=== PATIENT | female | born 1925 | race Caucasian/White ===

== ENCOUNTER 2016-04-05 13:18 | Emergency (ER) | payer OTHER, BC, MEDICARE ==
[~2016-04-05] VITALS: Ht 147.3 cm; Wt 68.0 kg
[~2016-04-05 13:18] MED LIST: ACETAMINOPHEN500 M4 PO; ANTIVERT 12.512.5 MG PO; ASPIR 8181 MG PO; ATORVASTATIN CA40 M1 PO; BENICAR20 M1 PO; BENICAR40 M1 PO; CEVIMELINE HCL30 MG PO; CLARITIN10 MG PO; COLACE100 M1 PO; FERROUS SULFAT325 M1 PO; FERROUS SULFAT325 M3 PO; HYDROCHLOROTH12.5 M3 PO; JANUVIA50 M1 PO; LANSOPRAZOLE30 MG PO; LANTUS INS100 UNITS/ SC; LANTUS SOL100 UNIT/1 SC; LANTUS SOLOS100 U/ML SC; LEVEMIR 10100 UNITS/ SC; MAGNESIUM400 M1 PO; MASON NATURAL325 MG PO; MELOXICAM7.5 MG PO; METANX 2.8 MG-21 TAB PO; PROAIR HFA0.09 MG/Ac INH; PROAIR HFA8.5 GM INH; PROBIOTIC & ACI1 CAP PO; PROBIOTIC1 EACH PO; RESTASIS 0.4 M0.4 ML OPH; RESTASIS1 EACH OP; SENNA8.6 M3 PO; SIMVASTATIN10 MG PO; SPIRIVA 18 MCG18 MCG INH; SPRIVIA; TYLENOL PM 5001 CAP PO; TYLENOL TAB 32325 MG PO; TYLENOL WITH C1 EACH PO; UNISOM50 MG PO; VITAMIN D1000 IU PO; [UNRECOGNIZED DRUG - OTHER] PO
--- NOTE | 2016-04-05 15:16 | ED GENERAL ADULT ---
History of Present Illness General Chief Complaint: General Adult Stated Complaint: WEAKNESS Source: patient Exam Limitations: no limitations Allergies Coded Allergies: shellfish derived (Severe, HTN 05/14/15) zolpidem (From AMBIEN) (Severe, SOB 05/14/15) Gadolinium-Containing Contrast Medi (CONTRAST DYE - HIVES ALL OVER 04/05/16) Iodinated Contrast Media - Oral and (CONTRAST DYE - HIVES ALL OVER 04/05/16) gabapentin (UNKNOWN PER PT 05/14/15) Reconcile Medications Acetaminophen 500 MG TABLET 2 TAB PO BID ARTHRITIS (Reported) Albuterol Sulfate (Proair Hfa) 8.5 GM HFA.AER.AD 2 PUF INH PRN COPD (Reported ) Atorvastatin Calcium 40 MG TABLET 1 TAB PO DAILY CHOLESTEROL (Reported) Cevimeline HCl 30 MG CAPSULE 1 CAP PO BID DRY MOUTH (Reported) Cholecalciferol (Vitamin D3) (Vitamin D3) 1,000 UNIT CAPSULE 1 CAP PO DAILY SUPPLEMENT (Reported) Cyclosporine (Restasis) 1 EACH DROPERETTE 1 AMP OP DAILY BOTH EYES (Reported) Diphenhydramine HCl (Unisom) 50 MG CAPSULE 1 CAP PO QHS SLEEP HELP (Reported) Docusate Sodium (Colace) 100 MG CAPSULE 2 CAP PO 1400 GI (Reported) Ferrous Sulfate 325 MG (65 MG IRON) TABLET 1 TAB PO BID SUPPLEMENT (Reported) Hydrochlorothiazide 12.5 MG CAPSULE 1 CAP PO DAILY BP (Reported) Insulin Glargine,Hum.rec.anlog (Lantus Solostar) 100 UNIT/1 ML INSULN.PEN 32 UNIT SC BID DIABETES (Reported) Lactobacillus Acidophilus (Probiotic) 1 EACH CAPSULE 1 CAP PO QAM PROBIOTIC ( Reported) Lansoprazole 30 MG CAPSULE.DR 1 CAP PO DAILY GI (Reported) Magnesium Oxide (Magnesium) 400 MG CAPSULE 1 CAP PO DAILY GALL BLADDER ( Reported) Mecobal/Levomefolat Ca/B6 Phos (Foltanx Tablet) 2 MG-3 MG-35 MG TABLET 1 TAB PO BID NEUROPATHY (Reported) Olmesartan Medoxomil (Benicar) 20 MG TABLET 1 TAB PO DAILY HTN Sennosides (Senna) 8.6 MG TABLET 2 TAB PO DAILY CONSTIPATION (Reported) Sitagliptin Phosphate (Januvia) 50 MG TABLET 1 TAB PO QAM DIABETES (Reported) Triage Note: PT C/O FEELING TIRED, ACHY AND WEAK SINCE THIS AM. PT DENIES CP BUT STATES SHE IS SOB WHICH IS NORMAL FOR HER. Triage Nurses Notes Reviewed? yes HPI: This patient is an 82-year-old female with past medical history including hypertension, lung carcinoma, and anemia who presents to the emergency department today for evaluation of, "I just feel lousy and weak and tired." The patient reported that she has had significant workup for anemia requiring blood transfusions on multiple occasions in the past. She reported that she is supposed to see Dr. Diaz periodically for lab check. She is due to see him this . However, this morning she woke up feeling more short of breath than normal. She also has been feeling weak, lightheaded, and fatigued. The patient denied any dizziness, visual changes, chest pain, abdominal pain, nausea , vomiting, back pain, or any other associated symptoms. The patient reported that she is currently on iron which makes her stools black, so she is unable to tell if there is any blood in her stool this time. The patient has had a colonoscopy, endoscopy, and pill cam with no etiology found for the bleeding. She has also had renal ultrasounds. (WIL ADDISON,SARAH) Vital Signs & Intake/Output Vital Signs & Intake/Output Vital Signs Date Time Temp Pulse Resp B/P Pulse O2 O2 Flow FiO2 Ox Delivery Rate 04/05 1706 98.2 76 17 144/80 98 Room Air Room Air 04/05 1511 98 Room Air 04/05 1329 98.1 79 20 168/70 97 Room Air ED Intake and Output 04/06 0000 04/05 1200 Intake Total Output Total Balance Patient 150 lb Weight Past History Travel History Traveled to [place] past 21 day No Medical History Any Pertinent Medical History? see below for history Neurological: peripheral neuropathy (DM) EENT: cataracts (B/L surgery), hearing loss (B/L), otitis media (B/L) Cardiovascular: hypertension, hyperlipidemia, nonsustained Vtach postop lung surgery 2004. 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 BROTHER (prostate cancer). , Age 75. MOTHER (heart attack at age of 72, HTN). , Age 72. BROTHER, , Age 75; Cause: Prostate CA. MOTHER, , Age 72. SON SISTER, , Age 94; Cause: Old age. SISTER, Age 94. Relation not specified for: colon cancer Hx Contributory? No (SARAH DE LA TORRE PA-C) Review of Systems Review of Systems Constitutional: Reports: see HPI. EENTM: Reports: no symptoms. Respiratory: Reports: see HPI. Cardiovascular: Reports: no symptoms. GI: Reports: no symptoms. Genitourinary: Reports: no symptoms. Musculoskeletal: Reports: no symptoms. Skin: Reports: no symptoms. Neurological/Psychological: Reports: no symptoms. All Other Systems: Reviewed and Negative (SARAH DE LA TORRE PA-C) Physical Exam Physical Exam General Appearance: well developed/nourished, no apparent distress, alert, awake Comments: Well-developed well-nourished person in no acute distress HEENT: Normal EENT exam, head normocephalic, moist mucous membranes Pupils equally round and reactive to light. Neck: Supple, no lymphadenopathy Back: Normal inspection Cardiovascular: Regular rate and rhythm with no murmurs, rubs, or gallops. No JVD Respiratory: No respiratory distress. Breath sounds clear to auscultation bilaterally with no wheezes, rales, rhonchi Abdomen: Soft, nontender nondistended, no appreciable organomegaly. Normal bowel sounds. No ascites Extremity: No edema, no calf tenderness to palpation, normal and equal pulses. Neuro: Alert oriented x3, cranial nerves II through XII grossly intact. Skin: No appreciable rash on exposed skin, skin is warm and dry. Psych: Mood and affect is normal (SARAH DE LA TORRE PA-C) Core Measures ACS in differential dx? No CVA/TIA Diagnosis: No Severe Sepsis Present: No Septic Shock Present: No (DARRYL HUERTA DO) Progress Differential Diagnoses I considered the following diagnoses in my evaluation of the patient: [Influenza , COPD, CHF, PE, ACS, anemia] Diagnostic Imaging: Viewed by Me: Radiology Read. Discussed w/RAD: Radiology Read. CXR Impression: PATIENT: PABLO LOYOLA PRESENT AGE: 89 PATIENT ACCOUNT NO: [id number] : [birth year] LOCATION: [facility] ORDERING PHYSICIAN: SARAH DE LA TORRE PA-C SERVICE DATE: 04/05/16 EXAM TYPE: RAD - XRY- PORTABLE CHEST XRAY EXAMINATION: XR PORTABLE CHEST CLINICAL INFORMATION: Shortness of breath COMPARISON: 12/29/2015 TECHNIQUE: Portable AP view of the chest was obtained. FINDINGS: No focal consolidation, pulmonary edema, or pleural effusion. Stable cardiomediastinal silhouette. IMPRESSION: No acute cardiopulmonary findings. No change. DICTATED BY: KRISTINA RIOS MD DATE/ TIME DICTATED:04/05/161532 BLOCK INSPECTOR:JASMINA DATE/TIME TRANSCRIBED: 04/05/161532 CONFIDENTIAL, DO NOT COPY WITHOUT APPROPRIATE AUTHORIZATION. < Electronically signed in Other Vendor System> SIGNED BY: KRISTINA RIOS MD 04/05/161537 Initial ED EKG: sinus arrhythmia, similar to prior ekg Comments: 04/05/2016 4:19:11 PM: I was at the patient's bedside for re-evaluation. Resting comfortably on the stretcher. Updated her teri lab and imaging results. No increase in troponin or BNP. H&H stable. UNremarkable chest x-ray. Discussed this patient with Dr. Huerta who will be at the patient's bedside for face-to- face evaluation. 04/05/2016 4:41:15 PM: Dr. Huerta currently at the patient's bedside for face-to- face evaluation. (WIL ADDISON,SARAH) Plan of Care: Orders Procedure Date/time Status B-TYPE NATRIURETIC PEP (BNP) 04/05 1520 Complete Add-on Test (ER Only) 04/05 1519 Active RAPID VIRAL INFLUENZA A 04/05 1455 Complete PARTIAL THROMBOPLASTIN TIME 04/05 1455 Complete PROTHROMBIN TIME 04/05 1455 Complete TYPE & SCREEN (NOT X-MATCH) 04/05 1455 Complete TROPONIN LEVEL 04/05 1454 Complete MAGNESIUM 04/05 1454 Complete COMPREHENSIVE METABOLIC PANEL 04/05 1454 Complete CBC WITHOUT DIFFERENTIAL 04/05 1454 Complete EKG 04/05 1330 Active Laboratory Tests 04/05/16 1520: Anion Gap 13, Estimated GFR > 60, BUN/Creatinine Ratio 20.0, Glucose 133 H, Calcium 10.4 H, Magnesium 1.2 L, Total Bilirubin 0.4, AST 28, ALT 25, Alkaline Phosphatase 53, Troponin I 0.01, Ooy-Q-Cbcmobigefj Pept 584 H, Total Protein 7.5, Albumin 4.4, Globulin 3.1, Albumin/Globulin Ratio 1.4, PT 11.3, INR 1.08, APTT 36, CBC w Diff NO MAN DIFF REQ, RBC 4.03 L, MCV 91.3, MCH 30.4, RDW 14.8 H, MPV 8.5, Gran % 72.6, Lymphocytes % 19.8 L, Monocytes % 6.4, Eosinophils % 1.0, Basophils % 0.2, Absolute Granulocytes 5.8, Absolute Lymphocytes 1.6, Absolute Monocytes 0.5, Absolute Eosinophils 0.1, Absolute Basophils 0, PUBS MCHC 33.3 Microbiology 04/05 1551 NASOPHARYN: Influenza Virus A & B Rapid Smear - COMP Departure Departure Disposition: HOME OR SELF CARE Condition: Stable Clinical Impression Primary Impression: Fatigue Qualifiers: Fatigue type: unspecified Qualified Code: R53.83 - Other fatigue Referrals: FRANNY CHOWDHURY,ADAM Vasquez (PCP/Family) Additional Instructions: PLEASE FOLLOW-UP WITH YOUR PRIMARY CARE PHYSICIAN. CONTINUE TO TAKE ALL PREVIOUSLY PRESCRIBED MEDICATIONS DIRECTED. RETURN FOR ANY WORSENING SYMPTOMS OR CONCERNS. Departure Forms: Customer Survey General Discharge Information (SARAH DE LA TORRE PA-C) PA/COFFEE MACHINE TECHNICIAN Co-Sign Statement Statement: ED Attending supervision documentation- [X] I saw and evaluated the patient. I have also reviewed all the pertinent lab results and diagnostic results. I agree with the findings and the plan of care as documented in the PA's/COFFEE MACHINE TECHNICIAN's documentation. [] I have reviewed the ED Record and agree with the PA's/COFFEE MACHINE TECHNICIAN's documentation. [] Additions or exceptions (if any) to the PAs/COFFEE MACHINE TECHNICIAN's note and plan are summarized below: [] (DARRYL HUERTA DO) Critical Care Note Critical Care Note Critical Care Time: non-applicable (DARRYL HUERTA DO)
[2016-04-05] MEDS ORDERED: FOLTANX TABLET1 EACH PO (15:18)
[2016-04-05] MEDS ORDERED: LANSOPRAZOLE30 M2 PO (15:23)
[2016-04-05] MEDS ORDERED: HYDROCHLOROTH12.5 M3 PO (15:24)
[2016-04-05] MEDS ORDERED: CEVIMELINE HCL30 M1 PO (15:25)
[2016-04-05] MEDS ORDERED: VITAMIN D31000 UNI1 PO (15:26)
--- NOTE | 2016-04-05 15:38 | RADIOLOGY REPORT ---
EXAMINATION: XR PORTABLE CHEST CLINICAL INFORMATION: Shortness of breath COMPARISON: 12/29/2015 TECHNIQUE: Portable AP view of the chest was obtained. FINDINGS: No focal consolidation, pulmonary edema, or pleural effusion. Stable cardiomediastinal silhouette. IMPRESSION: No acute cardiopulmonary findings. No change.
[2016-04-05 15:40] LABS: ABSOLUTE BASOPHIL COUNT 0 /CUMM (0.0-0.2); ABSOLUTE EOSINOPHIL COUNT 0.1 /CUMM (0.0-0.7); ABSOLUTE GRANULOCYTE CT 5.8 /CUMM (1.4-6.5); ABSOLUTE LYMPH COUNT 1.6 /CUMM (1.2-3.4); ABSOLUTE MONOCYTE COUNT 0.5 /CUMM (0.10-0.60); BASOPHIL % 0.2 % (0.0-2.0); GRANULOCYTE % 72.6 % (42.2-75.2); HEMATOCRIT 36.8 % (37-47); MEAN CORPUSCULAR HGB 30.4 PG (27.0-31.0); MEAN CORPUSCULAR HGB CONC 33.3 G/DL (33.0-37.0); MEAN CORPUSCULAR VOLUME 91.3 FL (81.0-99.0); MEAN PLATELET VOLUME 8.5 FL (7.4-10.4); PLATELET COUNT 312 /CUMM (130-400); RBC DISTRIBUTION WIDTH 14.8 % (11.5-14.5); RED BLOOD CELL CT 4.03 /CUMM (4.20-5.40)
[2016-04-05 15:45] LABS: PT 11.3 SEC (9.4-12.5); PTT 36 SEC (25-37)
[2016-04-05 17:06] VITALS: BP 144/80
== END 2016-04-05 17:06 ==
LOC: ERH 13:18
PROVIDERS: Physician Assistant
DX: R53.83 Other fatigue (principal); R06.02 Shortness of breath; R42 Dizziness and giddiness; I10 Essential (primary) hypertension; E11.9 Type 2 diabetes mellitus without complications; Z87.891 Personal history of nicotine dependence; Z79.4 Long term (current) use of insulin
CPT/HCPCS: 87804; 87804-59; 93005; 93010

== ENCOUNTER 2016-05-22 10:13 | Emergency (ER) | payer OTHER, BC, MEDICARE ==
[~2016-05-22] VITALS: Ht 147.3 cm; Wt 68.0 kg
[~2016-05-22 10:13] MED LIST changes: +CEVIMELINE HCL30 M1 PO; +FOLTANX TABLET1 EACH PO; +LANSOPRAZOLE30 M2 PO; +VITAMIN D31000 UNI1 PO
[2016-05-22 11:06] LABS: ABSOLUTE BASOPHIL COUNT 0.1 /CUMM (0.0-0.2); ABSOLUTE EOSINOPHIL COUNT 0.1 /CUMM (0.0-0.7); ABSOLUTE GRANULOCYTE CT 5.1 /CUMM (1.4-6.5); ABSOLUTE LYMPH COUNT 1.3 /CUMM (1.2-3.4); ABSOLUTE MONOCYTE COUNT 0.5 /CUMM (0.10-0.60); BASOPHIL % 1.2 % (0.0-2.0); EOSINOPHIL % 2.1 % (0-5); GRANULOCYTE % 72.2 % (42.2-75.2); MEAN CORPUSCULAR HGB 30.2 PG (27.0-31.0); MEAN CORPUSCULAR HGB CONC 33.3 G/DL (33.0-37.0); MEAN CORPUSCULAR VOLUME 90.6 FL (81.0-99.0); MEAN PLATELET VOLUME 8.7 FL (7.4-10.4); PLATELET COUNT 288 /CUMM (130-400); RBC DISTRIBUTION WIDTH 14.6 % (11.5-14.5); RED BLOOD CELL CT 3.98 /CUMM (4.20-5.40); WHITE BLOOD CELL COUNT 7.1 /CUMM (4.8-10.8)
--- NOTE | 2016-05-22 11:34 | ED AMS/SEIZURE/WEAK/DIZZY ---
History of Present Illness General Chief Complaint: General Adult Stated Complaint: INCREASED WEAKESS Source: patient Exam Limitations: no limitations Vital Signs & Intake/Output Vital Signs & Intake/Output Vital Signs Date Time Temp Pulse Resp B/P Pulse O2 O2 Flow FiO2 Ox Delivery Rate 05/22 1312 98.4 62 18 172/72 94 Room Air 05/22 1136 Nasal 2.0L Cannula 05/22 1023 97.2 73 18 134/61 96 Room Air Room Air Allergies Coded Allergies: shellfish derived (Severe, HTN 05/14/15) zolpidem (From AMBIEN) (Severe, SOB 05/14/15) Gadolinium-Containing Contrast Medi (CONTRAST DYE - HIVES ALL OVER 04/05/16) Iodinated Contrast Media - Oral and (CONTRAST DYE - HIVES ALL OVER 04/05/16) gabapentin (UNKNOWN PER PT 05/14/15) Reconcile Medications Acetaminophen 500 MG TABLET 2 TAB PO BID ARTHRITIS (Reported) Albuterol Sulfate (Proair Hfa) 8.5 GM HFA.AER.AD 2 PUF INH PRN COPD (Reported ) Atorvastatin Calcium 40 MG TABLET 1 TAB PO DAILY CHOLESTEROL (Reported) Cevimeline HCl 30 MG CAPSULE 1 CAP PO BID DRY MOUTH (Reported) Cholecalciferol (Vitamin D3) (Vitamin D3) 1,000 UNIT CAPSULE 1 CAP PO DAILY SUPPLEMENT (Reported) Cyclosporine (Restasis) 1 EACH DROPERETTE 1 AMP OP DAILY BOTH EYES (Reported) Diphenhydramine HCl (Unisom) 50 MG CAPSULE 1 CAP PO QHS SLEEP HELP (Reported) Docusate Sodium (Colace) 100 MG CAPSULE 2 CAP PO 1400 GI (Reported) Ferrous Sulfate 325 MG (65 MG IRON) TABLET 1 TAB PO BID SUPPLEMENT (Reported) Hydrochlorothiazide 12.5 MG CAPSULE 1 CAP PO DAILY BP (Reported) Insulin Glargine,Hum.rec.anlog (Lantus Solostar) 100 UNIT/1 ML INSULN.PEN 32 UNIT SC BID DIABETES (Reported) Lactobacillus Acidophilus (Probiotic) 1 EACH CAPSULE 1 CAP PO QAM PROBIOTIC ( Reported) Lansoprazole 30 MG CAPSULE.DR 1 CAP PO DAILY GI (Reported) Magnesium Oxide (Magnesium) 400 MG CAPSULE 1 CAP PO DAILY GALL BLADDER ( Reported) Meclizine HCl 25 MG TABLET 1 TAB PO TIDPRN PRN DIZZINESS Mecobal/Levomefolat Ca/B6 Phos (Foltanx Tablet) 2 MG-3 MG-35 MG TABLET 1 TAB PO BID NEUROPATHY (Reported) Olmesartan Medoxomil (Benicar) 20 MG TABLET 1 TAB PO DAILY HTN Scopolamine Hydrobromide (Transderm-Scop) 1.5MG/3DAY PATCH.TD.3 1 PAT TOP Q3D VERTIGO apply to the hairless area behind 1 ear at least 4 hours before effect is required; reapply every 3 days as needed Sennosides (Senna) 8.6 MG TABLET 2 TAB PO DAILY CONSTIPATION (Reported) Sitagliptin Phosphate (Januvia) 50 MG TABLET 1 TAB PO QAM DIABETES (Reported) Triage Note: TRIAGE: 89 Y/O FEMALE PRESENTS C/O INCREASED WEAKNESS AND "I FEEL LIKE I'M GOING TO PASS OUT." DENIES HEADACHE, REPORTS "LIKE I'M FLOATING". EKG ORDER PLACED AT THIS TIME. Triage Nurses Notes Reviewed? yes Onset: Gradual Duration: day(s): (FEW) Timing: recent history Injury Environment: home Severity: mild HPI: 89 year old female presents with weakness and just not feeling right. Symptoms for a few days. Also complains of shortness of breath unsure if worse than baseline. No home oxygen. Denies fever, chills, chest pain, palpitations, cough with sputum, constipation, diarrhea. No urinary symptoms. No headache, confusion, memory loss. Patient worried about electrolytes which have been abnormal in the past. Past History Travel History Traveled to [place] past 21 day No Medical History Any Pertinent Medical History? see below for history Neurological: peripheral neuropathy (DM) EENT: cataracts (B/L surgery), hearing loss (B/L), otitis media (B/L) Cardiovascular: hypertension, hyperlipidemia, nonsustained Vtach postop lung surgery 2004. 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 BROTHER (prostate cancer). , Age 75. MOTHER (heart attack at age of 72, HTN). , Age 72. BROTHER, , Age 75; Cause: Prostate CA. MOTHER, , Age 72. SON SISTER, , Age 94; Cause: Old age. SISTER, Age 94. Relation not specified for: colon cancer Hx Contributory? No Review of Systems Review of Systems Constitutional: Reports: weakness. Denies: chills, fever. EENTM: Reports: no symptoms. Respiratory: Reports: cough, short of breath. Denies: sputum production. Cardiovascular: Denies: chest pain, palpitations. GI: Denies: abdominal pain, constipation, diarrhea, nausea, vomiting. Genitourinary: Reports: no symptoms. Musculoskeletal: Reports: no symptoms. Skin: Reports: no symptoms. Neurological/Psychological: Reports: no symptoms. Hematologic/Endocrine: Denies: bruising, bleeding, polyuria, polydipsia. Immunologic/Allergic: Denies: splenectomy. All Other Systems: Reviewed and Negative Physical Exam Physical Exam General Appearance: alert, awake Head: atraumatic, normal appearance Eyes: Bilateral: normal appearance, PERRL, EOMI. Ears, Nose, Throat: normal pharynx, hearing grossly normal Neck: normal inspection, supple, full range of motion Respiratory: decreased breath sounds (ON LEFT) Cardiovascular: regular rate/rhythm Peripheral Pulses: 2+ radial (R), 2+ radial (L) Extremities: PETECHIAL RASH ON LEGS, NO EDEMA Neurologic/Psych: awake, alert Skin: intact, normal color, warm/dry Core Measures ACS in differential dx? No CVA/TIA Diagnosis: No Severe Sepsis Present: No Septic Shock Present: No Progress Differential Diagnosis: anemia, dehydration, electrolyte imbalance, GI bleed, HYPOMAGNESEMIA Plan of Care: Orders Procedure Date/time Status Heart Healthy Diet 05/22 D Active Add-on Test (ER Only) 05/22 1152 Active MAGNESIUM 05/22 1055 Complete URINALYSIS 05/22 1038 Complete TROPONIN LEVEL 05/22 1038 Complete COMPREHENSIVE METABOLIC PANEL 05/22 1038 Complete CBC WITHOUT DIFFERENTIAL 05/22 1038 Complete EKG 05/22 1025 Active Laboratory Tests 05/22/16 1152: Urinalysis LIGHT H, Urine Color YEL, Urine Clarity HAZY H, Urine pH 5.5, Ur Specific [place] >= 1.030, Urine Protein NEG, Urine Ketones NEG, Urine Nitrite NEG, Urine Bilirubin NEG, Urine Urobilinogen 0.2, Ur Leukocyte Esterase NEG, Ur Microscopic SEDIMENT EXAMINED, Urine RBC RARE, Urine WBC 1-3 H, Ur Epithelial Cells MANY H, Urine Bacteria MOD H, Urine Mucus RARE, Urine Hemoglobin NEG, Urine Glucose NEG 05/22/16 1055: Anion Gap 13, Estimated GFR > 60, BUN/Creatinine Ratio 27.5 H, Glucose 164 H, Calcium 10.4 H, Magnesium 1.2 L, Total Bilirubin 0.5, AST 28, ALT 31, Alkaline Phosphatase 49, Troponin I < 0.01, Total Protein 7.2, Albumin 4.2, Globulin 3.0, Albumin/Globulin Ratio 1.4, CBC w Diff NO MAN DIFF REQ, RBC 3.98 L, MCV 90.6, MCH 30.2, RDW 14.6 H, MPV 8.7, Gran % 72.2, Lymphocytes % 18.1 L, Monocytes % 6.4, Eosinophils % 2.1, Basophils % 1.2, Absolute Granulocytes 5.1, Absolute Lymphocytes 1.3, Absolute Monocytes 0.5, Absolute Eosinophils 0.1, Absolute Basophils 0.1, PUBS MCHC 33.3 Diagnostic Imaging: Viewed by Me: Radiology Read. Discussed w/RAD: Radiology Read. CXR Impression: PATIENT: PABLO LOYOLA PRESENT AGE: 89 PATIENT ACCOUNT NO: [id number] : [birth year] LOCATION: [facility] ORDERING PHYSICIAN: KARINA JANG MD SERVICE DATE: 05/22/16 EXAM TYPE: RAD - XRY-PORTABLE CHEST XRAY EXAMINATION: XR PORTABLE CHEST CLINICAL INFORMATION: Dyspnea. Night sweats. History of lung carcinoma. COMPARISON: Chest done on 04/05/2016. TECHNIQUE: Portable AP view of the chest was obtained. FINDINGS: Apparent widening of the superior mediastinum is noted. The cardiomediastinal silhouette otherwise appears unremarkable. No significant change. Prominent bronchovascular markings are present bilaterally, similar to prior study. No discrete focal airspace opacity. No significant change. IMPRESSION: No acute cardiopulmonary disease, appears stable since 04/05/2016. DICTATED BY: AMADOR FRIED MD DATE/ TIME DICTATED:05/22/161314 BLACK MILL OPERATOR:JASMINA DATE/TIME TRANSCRIBED: 05/22/161314 CONFIDENTIAL, DO NOT COPY WITHOUT APPROPRIATE AUTHORIZATION. < Electronically signed in Other Vendor System> SIGNED BY: AMADOR FRIED MD 05/22/16 1330 Initial ED EKG: NSR Departure Departure Disposition: HOME OR SELF CARE Condition: Stable Clinical Impression Primary Impression: Hypomagnesemia Referrals: FRANNY CHOWDHURY,ADAM Vasquez (PCP/Family) Additional Instructions: Continue your regular medications and follow-up with your doctor in the office. Return as needed. Departure Forms: Customer Survey General Discharge Information
--- NOTE | 2016-05-22 13:30 | RADIOLOGY REPORT ---
EXAMINATION: XR PORTABLE CHEST CLINICAL INFORMATION: Dyspnea. Night sweats. History of lung carcinoma. COMPARISON: Chest done on 04/05/2016. TECHNIQUE: Portable AP view of the chest was obtained. FINDINGS: Apparent widening of the superior mediastinum is noted. The cardiomediastinal silhouette otherwise appears unremarkable. No significant change. Prominent bronchovascular markings are present bilaterally, similar to prior study. No discrete focal airspace opacity. No significant change. IMPRESSION: No acute cardiopulmonary disease, appears stable since 04/05/2016.
[2016-05-22 14:50] VITALS: BP 156/69
== END 2016-05-22 14:51 ==
LOC: ERH 10:13
PROVIDERS: Emergency Medicine
DX: E83.42 Hypomagnesemia (principal)
CPT/HCPCS: 81001; 93005; 93010; 96361; 96374; J7040

== ENCOUNTER 2016-05-26 13:53 | Emergency (ER) | payer OTHER, BC, MEDICARE ==
[~2016-05-26] VITALS: Ht 147.3 cm; Wt 68.0 kg
--- NOTE | 2016-05-26 14:06 | ED GI/GU/ABDOMINAL COMPLAINT ---
History of Present Illness General Chief Complaint: Abdominal Pain/Flank Pain Stated Complaint: ABD PAIN, "WOOZY" Source: patient, family Exam Limitations: no limitations Allergies Coded Allergies: shellfish derived (Severe, HTN 05/14/15) zolpidem (From AMBIEN) (Severe, SOB 05/14/15) Gadolinium-Containing Contrast Medi (CONTRAST DYE - HIVES ALL OVER 04/05/16) Iodinated Contrast Media - Oral and (CONTRAST DYE - HIVES ALL OVER 04/05/16) gabapentin (UNKNOWN PER PT 05/14/15) Reconcile Medications Acetaminophen 500 MG TABLET 2 TAB PO BID ARTHRITIS (Reported) Albuterol Sulfate (Proair Hfa) 8.5 GM HFA.AER.AD 2 PUF INH PRN COPD (Reported ) Atorvastatin Calcium 40 MG TABLET 1 TAB PO DAILY CHOLESTEROL (Reported) Cevimeline HCl 30 MG CAPSULE 1 CAP PO BID DRY MOUTH (Reported) Cholecalciferol (Vitamin D3) (Vitamin D3) 1,000 UNIT CAPSULE 1 CAP PO DAILY SUPPLEMENT (Reported) Cyclosporine (Restasis) 1 EACH DROPERETTE 1 AMP OP DAILY BOTH EYES (Reported) Diphenhydramine HCl (Unisom) 50 MG CAPSULE 1 CAP PO QHS SLEEP HELP (Reported) Docusate Sodium (Colace) 100 MG CAPSULE 2 CAP PO 1400 GI (Reported) Ferrous Sulfate 325 MG (65 MG IRON) TABLET 1 TAB PO BID SUPPLEMENT (Reported) Hydrochlorothiazide 12.5 MG CAPSULE 1 CAP PO DAILY BP (Reported) Insulin Glargine,Hum.rec.anlog (Lantus Solostar) 100 UNIT/1 ML INSULN.PEN 32 UNIT SC BID DIABETES (Reported) Lactobacillus Acidophilus (Probiotic) 1 EACH CAPSULE 1 CAP PO QAM PROBIOTIC ( Reported) Lansoprazole 30 MG CAPSULE.DR 1 CAP PO DAILY GI (Reported) Magnesium Oxide (Magnesium) 400 MG CAPSULE 1 CAP PO DAILY GALL BLADDER ( Reported) Meclizine HCl 25 MG TABLET 1 TAB PO TIDPRN PRN DIZZINESS Mecobal/Levomefolat Ca/B6 Phos (Foltanx Tablet) 2 MG-3 MG-35 MG TABLET 1 TAB PO BID NEUROPATHY (Reported) Olmesartan Medoxomil (Benicar) 20 MG TABLET 1 TAB PO DAILY HTN Scopolamine Hydrobromide (Transderm-Scop) 1.5MG/3DAY PATCH.TD.3 1 PAT TOP Q3D VERTIGO apply to the hairless area behind 1 ear at least 4 hours before effect is required; reapply every 3 days as needed Sennosides (Senna) 8.6 MG TABLET 2 TAB PO DAILY CONSTIPATION (Reported) Sitagliptin Phosphate (Januvia) 50 MG TABLET 1 TAB PO QAM DIABETES (Reported) Triage Note: STATES SHE WOKE UP FEELING LIGHTHEADED, DIZZY AND ABDOMINAL PAIN. PT STATES SHE WAS SEEN HERE ON TUESDAY FOR THE SAME THING. STATES SHE FELT BETTER FOR ABOUT A DAY AND NOW SHE IS BACK TO FEELING SICK Triage Nurses Notes Reviewed? yes ? N Is pt currently ? No (N) Onset: Gradual Duration: getting worse Timing: recent history Quality/Severity: fullness Severity Numbers: 5 Location: generalized abdomen Radiation: no radiation Activities at Onset: none Prior Abdominal Problems: similar symptoms HPI: Patient is a 89-year-old female with a past medical history of diabetic peripheral neuropathy, hypertension, hyperlipidemia, COPD not on home O2, left lung cancer, in which patient was evaluated here at [place] emergency room 4 days ago for concerns of generalized weakness and fatigue patient had blood work noting 1.2 level of magnesium and chest x-ray was unremarkable. Patient returns to the emergency room with one day of improvement after her discharge from the emergency room (CAESAR GARCIA) Vital Signs & Intake/Output Vital Signs & Intake/Output Vital Signs Date Time Temp Pulse Resp B/P Pulse O2 O2 Flow FiO2 Ox Delivery Rate 05/26 1942 150/60 05/26 1754 68 18 191/74 95 05/26 1501 95 Room Air 05/26 1357 98.1 81 20 128/77 95 Room Air Past History Travel History Traveled to [place] past 21 day No Medical History Any Pertinent Medical History? see below for history Neurological: peripheral neuropathy (DM) EENT: cataracts (B/L surgery), hearing loss (B/L), otitis media (B/L) Cardiovascular: hypertension, hyperlipidemia, nonsustained Vtach postop lung surgery 2004. 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 BROTHER (prostate cancer). , Age 75. MOTHER (heart attack at age of 72, HTN). , Age 72. BROTHER, , Age 75; Cause: Prostate CA. MOTHER, , Age 72. SON SISTER, , Age 94; Cause: Old age. SISTER, Age 94. Relation not specified for: colon cancer Hx Contributory? No (CAESAR GARCIA) Review of Systems Review of Systems Constitutional: Reports: see HPI. Denies: chills, fever. EENTM: Reports: no symptoms. Respiratory: Reports: no symptoms. Cardiovascular: Reports: no symptoms. GI: Reports: see HPI, abdominal pain. Genitourinary: Reports: see HPI. Musculoskeletal: Reports: no symptoms. Skin: Reports: no symptoms. Neurological/Psychological: Reports: no symptoms. Hematologic/Endocrine: Reports: no symptoms. Immunologic/Allergic: Reports: no symptoms. All Other Systems: Reviewed and Negative (CAESAR GARCIA) Physical Exam Physical Exam General Appearance: no apparent distress, comfortable Head: atraumatic Eyes: Bilateral: normal appearance. Ears, Nose, Throat, Mouth: hearing grossly normal, BILATERAL TYMPANIC MEMBRANE PURULENT DISCHARGE EXTERNAL AUDITORY CANALS NOTED TO BE NORMAL Neck: normal inspection Respiratory: normal breath sounds, chest non-tender, no respiratory distress Cardiovascular: regular rate/rhythm Gastrointestinal: normal bowel sounds, soft, GENERALIZED POINT TENDERNESS NOTED Back: normal inspection Extremities: normal range of motion Neurologic/Psych: no motor/sensory deficits, awake, alert, normal gait Skin: intact, normal color, warm/dry Core Measures ACS in differential dx? No Severe Sepsis Present: No Septic Shock Present: No (CAESAR GARCIA) Progress Differential Diagnosis: AAA, AMI, appendicitis, biliary colic, bowel obstruction , colon cancer, cholecystitis, diverticulitis, endometritis, esophageal varices, gastritis, hepatitis, hernia, hemorrhoids, ischemic bowel, inflamm bowel dis, kidney stone, ovarian cyst, ovarian torsion, pancreatitis, PID/cervicitis, peptic ulcer, PUD/GERD, perforated viscous, SBO, UTI/pyelo Plan of Care: Orders Procedure Date/time Status Heart Healthy Diet 05/27 B Active URINALYSIS 05/26 141 Complete TROPONIN LEVEL 05/26 141 Complete MAGNESIUM 05/26 141 Complete COMPREHENSIVE METABOLIC PANEL 05/26 141 Complete CBC WITHOUT DIFFERENTIAL 05/26 141 Complete EKG 05/26 1359 Active Laboratory Tests 05/26/16 1532: Urine Color YEL, Urine Clarity CLEAR, Urine pH 6.0, Ur Specific [place] 1.015, Urine Protein NEG, Urine Ketones NEG, Urine Nitrite NEG, Urine Bilirubin NEG, Urine Urobilinogen 0.2, Ur Leukocyte Esterase NEG, Ur Microscopic EXAM NOT REQUIRED, Urine Hemoglobin NEG, Urine Glucose NEG 05/26/16 1419: Anion Gap 15, Estimated GFR > 60, BUN/Creatinine Ratio 26.3 H, Glucose 230 H, Calcium 9.7, Magnesium 1.1 L, Total Bilirubin 0.4, AST 25, ALT 32, Alkaline Phosphatase 61, Troponin I < 0.01, Total Protein 6.9, Albumin 4.0, Globulin 2.9, Albumin/Globulin Ratio 1.4, CBC w Diff NO MAN DIFF REQ, RBC 3.77 L, MCV 90.8, MCH 30.8, RDW 15.1 H, MPV 8.3, Gran % 74.5, Lymphocytes % 17.7 L, Monocytes % 6.4, Eosinophils % 1.0, Basophils % 0.4, Absolute Granulocytes 6.6 H, Absolute Lymphocytes 1.6, Absolute Monocytes 0.6, Absolute Eosinophils 0.1, Absolute Basophils 0, PUBS MCHC 33.9 Patient on this exam was in no apparent distress and had generalized abdominal tenderness in which patient and family state that this has been chronic in nature for many months. CT scan was unremarkable for acute process of the abdomen. I discussed pulmonary nodules with patient and was given instructions for follow-up for monitoring of the pulmonary nodules. Patient was able tolerate by mouth upon discharge. Patient did have noted bilateral tympanic membrane purulence however she was evaluated yesterday by ENT Dr. VELOZ office in which no medications were administered patient's daughter does state that she has chronic TM infections. Patient was also complaining of from spinning sensation however upon ambulation with supervision patient showed steady gait and denies any symptoms. Patient was given prophylactic meclizine and scopolamine for concerns of vertigo and chronic TM infection Discussed patient with Dr. Duffy who also evaluated patient and agrees with disposition and plan. (CAESAR GARCIA) Diagnostic Imaging: Viewed by Me: CT Scan. Initial ED EKG: normal p-waves, normal QRS complex, normal sinus rhythm, sINUS RHYTHM 90 BPM Comments: Patient was temporally transferred to [facility] due to CT scan diversion and which CT scan of chest was noted few pulmonary nodules however no significant abnormalities existed. The CT scan of abdomen dictated hypertrophy of the lateral segment of the left lobe can be seen early and cirrhosis, nonspecific thickening of left adrenal gland scattered colonic diverticulosis without acute diverticulitis and possible synovial osteochondralMAtosis to the bilateral shoulders and hips Patient was able tolerate by mouth with no change in symptoms (CAESAR GARCIA) Departure Departure Disposition: HOME OR SELF CARE Condition: Stable Clinical Impression Primary Impression: Dizziness Secondary Impressions: Abdominal pain Referrals: FRANNY CHOWDHURY,ADAM Vasquez (PCP/Family) Additional Instructions: As discussed follow-up with your doctor tomorrow for recheck of symptoms. Begin the prescription of meclizine for room spinning sensation and a prescription scopolamine for room spinning sensation. Begin drinking plenty of water for hydration and a well-balanced healthy diet. If symptoms worsen return to emergency room. Continue home medications as directed Prescriptions are waiting at [facility] Continue to use a walker for fall prevention Departure Forms: Customer Survey General Discharge Information Prescriptions: Current Visit Scripts Meclizine HCl 1 TAB PO TIDPRN PRN DIZZINESS #20 TAB Scopolamine Hydrobromide (Transderm-Scop) 1 PAT TOP Q3D #4 PAT apply to the hairless area behind 1 ear at least 4 hours before effect is required; reapply every 3 days as needed (CAESAR GARCIA) PA/DIGITAL MEDIA PRODUCER Co-Sign Statement Statement: ED Attending supervision documentation- [X] I saw and evaluated the patient. I have also reviewed all the pertinent lab results and diagnostic results. I agree with the findings and the plan of care as documented in the PA's/DIGITAL MEDIA PRODUCER's documentation. [] I have reviewed the ED Record and agree with the PA's/DIGITAL MEDIA PRODUCER's documentation. [] Additions or exceptions (if any) to the PAs/DIGITAL MEDIA PRODUCER's note and plan are summarized below: [] (PAPI CHOWDHURY,DARRYL Hammonds)
[2016-05-26 14:26] LABS: ABSOLUTE BASOPHIL COUNT 0 /CUMM (0.0-0.2); ABSOLUTE EOSINOPHIL COUNT 0.1 /CUMM (0.0-0.7); ABSOLUTE GRANULOCYTE CT 6.6 /CUMM (1.4-6.5); ABSOLUTE LYMPH COUNT 1.6 /CUMM (1.2-3.4); ABSOLUTE MONOCYTE COUNT 0.6 /CUMM (0.10-0.60); BASOPHIL % 0.4 % (0.0-2.0); GRANULOCYTE % 74.5 % (42.2-75.2); HEMATOCRIT 34.2 % (37-47); MEAN CORPUSCULAR HGB 30.8 PG (27.0-31.0); MEAN CORPUSCULAR HGB CONC 33.9 G/DL (33.0-37.0); MEAN CORPUSCULAR VOLUME 90.8 FL (81.0-99.0); MEAN PLATELET VOLUME 8.3 FL (7.4-10.4); PLATELET COUNT 286 /CUMM (130-400); RBC DISTRIBUTION WIDTH 15.1 % (11.5-14.5); RED BLOOD CELL CT 3.77 /CUMM (4.20-5.40); WHITE BLOOD CELL COUNT 8.9 /CUMM (4.8-10.8)
[2016-05-26] MEDS ORDERED: TRANSDERM-SCOP1 EACH TOP (19:32)
[2016-05-26] MEDS ORDERED: MECLIZINE HCL25 MG PO (19:32)
[2016-05-26 19:42] VITALS: BP 150/60
== END 2016-05-26 20:02 ==
LOC: ERH 13:53
PROVIDERS: Physician Assistant
DX: R42 Dizziness and giddiness (principal); R10.84 Generalized abdominal pain
CPT/HCPCS: 81003; 93005; 93010; 96360; 96361

== ENCOUNTER 2016-06-27 11:02 | Observation (INO) | payer OTHER, BC, MEDICARE ==
[~2016-06-27] VITALS: Ht 147.3 cm; Wt 68.0 kg
[~2016-06-27 11:02] MED LIST changes: +MECLIZINE HCL25 MG PO; +TRANSDERM-SCOP1 EACH TOP
--- NOTE | 2016-06-27 11:11 | NUR ---
PT STATES SHE IS HAVING RECTAL BLEEDING. PT STATES IT IS BRIGHT RED. PT REPORTS 3 EPISODES THIS AM. PT WITH HX OF SAME.
--- NOTE | 2016-06-27 11:14 | NUR ---
PT TO RM 5, CHANGING INTO GOWN
--- NOTE | 2016-06-27 11:54 | ED GI/GU/ABDOMINAL COMPLAINT ---
History of Present Illness General Chief Complaint: General Adult Stated Complaint: RECTAL BLEEDING Source: patient, family, old records Exam Limitations: no limitations Allergies Coded Allergies: shellfish derived (Severe, HTN 05/14/15) zolpidem (From AMBIEN) (Severe, SOB 05/14/15) Gadolinium-Containing Contrast Medi (CONTRAST DYE - HIVES ALL OVER 04/05/16) Iodinated Contrast Media - Oral and (CONTRAST DYE - HIVES ALL OVER 04/05/16) gabapentin (UNKNOWN PER PT 05/14/15) Reconcile Medications Acetaminophen 500 MG TABLET 2 TAB PO BID ARTHRITIS (Reported) Albuterol Sulfate (Proair Hfa) 8.5 GM HFA.AER.AD 2 PUF INH PRN COPD (Reported ) Atorvastatin Calcium 40 MG TABLET 1 TAB PO 1700 HLD (Reported) Cevimeline HCl 30 MG CAPSULE 1 CAP PO BID DRY MOUTH (Reported) Cholecalciferol (Vitamin D3) (Vitamin D3) 1,000 UNIT CAPSULE 1 CAP PO DAILY SUPPLEMENT (Reported) Cyclosporine (Restasis) 1 EACH DROPERETTE 1 AMP OP DAILY BOTH EYES (Reported) Diphenhydramine HCl (Unisom) 50 MG CAPSULE 1 CAP PO QHS SLEEP HELP (Reported) Docusate Sodium (Colace) 100 MG CAPSULE 2 CAP PO 1400 GI (Reported) Ferrous Sulfate 325 MG (65 MG IRON) TABLET 1 TAB PO TID IRON SUPPLEMENT Insulin Glargine,Hum.rec.anlog (Lantus Solostar) 100 UNIT/1 ML INSULN.PEN 32 UNIT SC BID DIABETES (Reported) Lactobacillus Acidophilus (Probiotic) 1 EACH CAPSULE 1 CAP PO QAM PROBIOTIC ( Reported) Lansoprazole 30 MG CAPSULE.DR 1 CAP PO DAILY GI (Reported) Magnesium Oxide (Magnesium) 400 MG CAPSULE 1 CAP PO BID GALL BLADDER ( Reported) Mecobal/Levomefolat Ca/B6 Phos (Foltanx Tablet) 2 MG-3 MG-35 MG TABLET 1 TAB PO BID NEUROPATHY (Reported) Olmesartan Medoxomil (Benicar) 20 MG TABLET 1 TAB PO DAILY HTN Sennosides (Senna) 8.6 MG TABLET 2 TAB PO DAILY CONSTIPATION (Reported) Sitagliptin Phosphate (Januvia) 50 MG TABLET 1 TAB PO QAM DIABETES (Reported) Triage Note: PT STATES SHE IS HAVING RECTAL BLEEDING. PT STATES IT IS BRIGHT RED. PT REPORTS 3 EPISODES THIS AM. PT WITH HX OF SAME. Triage Nurses Notes Reviewed? yes ? N Is pt currently ? 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 Patient states that she was in her normal state of health until she woke up this morning when she had 3 episodes of loose stool. Stool described as combination of brown and black in color and did have some evidence of masood blood. Patient reports that she has had similar symptoms approximately 11 months ago. She states that she's been extensively worked up by GI. She currently is on a combination of daily iron pills and stool softeners for symptomatic relief of constipation. This morning she denies any fever, chills, nausea, vomiting. She does endorse shortness of breath. (KAYLEE CHOWDHURY,[facility]) Vital Signs & Intake/Output Vital Signs & Intake/Output Vital Signs Date Time Temp Pulse Resp B/P B/P Pulse O2 O2 Flow FiO2 Mean Ox Delivery Rate 06/28 1524 98.3 80 20 130/60 93 06/28 0842 71 142/60 06/28 0800 Room Air 06/28 0648 98.0 71 20 142/60 92 Room Air ED Intake and Output 06/29 0000 06/28 1200 Intake Total 800 1580 Output Total 200 800 Balance 600 780 Intake, IV 800 Intake, Oral 800 780 Number 3 0 Bowel Movements Output, Urine 200 800 Past History Travel History Traveled to [place] past 21 day No Medical History Neurological: peripheral neuropathy (DM) EENT: cataracts (B/L surgery), hearing loss (B/L), otitis media (B/L) Cardiovascular: hypertension, hyperlipidemia, nonsustained Vtach postop lung surgery 2004. 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 BROTHER (prostate cancer). , Age 75. MOTHER (heart attack at age of 72, HTN). , Age 72. BROTHER, , Age 75; Cause: Prostate CA. MOTHER, , Age 72. SON SISTER, , Age 94; Cause: Old age. SISTER, Age 94. Relation not specified for: colon cancer (LAURO PAGE MD) Medical History Any Pertinent Medical History? see below for history Family History Hx Contributory? No (SALO CHOWDHURY,DMITRY Bartlett) Review of Systems Review of Systems Constitutional: Denies: chills, diaphoresis, fever, malaise, weakness. Respiratory: Reports: short of breath. Denies: cough, hemoptysis, orthopnea, sputum production, stridor. Cardiovascular: Denies: chest pain, edema, orthopena, palpitations, peripheral edema. GI: Reports: melena, bloody stool, changes in stool. Denies: abdominal pain, bloating, constipation, nausea, vomiting. Genitourinary: Denies: discharge, dysuria, frequency, hematuria, hesitation. Musculoskeletal: Denies: back pain, gout, joint pain, joint swelling. (LAURO PAGE MD) Review of Systems EENTM: Reports: see HPI. Skin: Reports: no symptoms. Neurological/Psychological: Reports: no symptoms. Hematologic/Endocrine: Reports: no symptoms. Immunologic/Allergic: Reports: no symptoms. All Other Systems: Reviewed and Negative (DMITRY LEONG MD) Physical Exam Physical Exam General Appearance: well developed/nourished, no apparent distress, alert, awake Neck: normal inspection Respiratory: normal breath sounds, Decreased Breath Sounds Cardiovascular: regular rate/rhythm Peripheral Pulses: 4+ dorsalis pedis (R), 4+ dorsalis pedis (L) Gastrointestinal: normal bowel sounds, soft, non-tender, no organomegaly Rectal: normal inspection, normal rectal tone, heme positive stool, black stool, Guiaic + (LAURO PAGE MD) Physical Exam Head: atraumatic Eyes: Bilateral: PERRL, EOMI. Ears, Nose, Throat, Mouth: hearing grossly normal, moist mucous membrane Back: normal inspection Extremities: normal range of motion Neurologic/Psych: no motor/sensory deficits, awake, alert, oriented x 3, normal mood/affect Skin: intact, normal color, warm/dry Core Measures ACS in differential dx? No Severe Sepsis Present: No Septic Shock Present: No (SALO CHOWDHURY,DMITRY Bartlett) Progress Differential Diagnosis: hernia, hemorrhoids, Hx of colon Ca (LAURO PAGE MD) Plan of Care: Orders Procedure Date/time Status Regular Diet 06/28 B Active CBC WITHOUT DIFFERENTIAL 06/28 1400 Complete Change service to 06/28 0805 Active MAGNESIUM 06/28 0600 Complete BASIC ELECTROLYTES PLUS BUN&CR 06/28 0600 Complete House Staff 06/28 UNK Active Discharge Patient 06/28 UNK Active Laboratory Tests 06/28/16 1405: CBC w Diff NO MAN DIFF REQ, RBC 3.34 L, MCV 92.2, MCH 30.5, RDW 15.2 H, MPV 8.4, Gran % 72.6, Lymphocytes % 18.4 L, Monocytes % 6.2, Eosinophils % 2.6, Basophils % 0.2, Absolute Granulocytes 5.8, Absolute Lymphocytes 1.5, Absolute Monocytes 0.5, Absolute Eosinophils 0.2, Absolute Basophils 0, PUBS MCHC 33.1 06/28/16 0713: Anion Gap 11, Estimated GFR > 60, BUN/Creatinine Ratio 28.8 H, Magnesium 1.7, CBC w Diff NO MAN DIFF REQ, RBC 3.11 L, MCV 92.1, MCH 31.2 H, RDW 15.4 H, MPV 8.5, Gran % 59.2, Lymphocytes % 27.6, Monocytes % 8.5, Eosinophils % 4.3, Basophils % 0.4, Absolute Granulocytes 3.8, Absolute Lymphocytes 1.8, Absolute Monocytes 0.5, Absolute Eosinophils 0.3, Absolute Basophils 0, PUBS MCHC 33.9 Initial ED EKG: NSR, no ST T wave changes Prior EKG: unchanged (SALO CHOWDHURY,DMITRY Bartlett) Departure Departure Condition: Stable Referrals: FRANNY CHOWDHURY,ADAM Vasquez (PCP/Family) Departure Forms: Customer Survey General Discharge Information Prescriptions: Current Visit Scripts Ferrous Sulfate 1 TAB PO TID #90 TAB (KAYLEE CHOWDHURY,ALLEN) Departure Disposition: STILL A PATIENT Clinical Impression Primary Impression: Lower GI bleed Observation Note Spoke With: IVETTE CHOWDHURY,LOLA Physician Advisor Notified: SOHAN CHOWDHURY,ADAM Bartlett Place Patient In: Non-ED OBS Care Area Rationale for Observation: My rational for observation is as follows [serial hematocrits, GI consultation, if she bleeds more she may require transfusion.]. PA/HEAD SHIPPER Co-Sign Statement Statement: ED Attending supervision documentation- [] I saw and evaluated the patient. I have also reviewed all the pertinent lab results and diagnostic results. I agree with the findings and the plan of care as documented in the PA's/HEAD SHIPPER's documentation. [] I have reviewed the ED Record and agree with the PA's/HEAD SHIPPER's documentation. [] Additions or exceptions (if any) to the PAs/HEAD SHIPPER's note and plan are summarized below: [] Resident Co-Sign Statement Statement: ED Attending supervision documentation- [X] I saw and evaluated the patient. I have also reviewed all the pertinent lab results and diagnostic results. I agree with the findings and the plan of care as documented in the Resident's documentation. [X] I have reviewed the ED Record and agree with the Resident's documentation. [] Additions or exceptions (if any) to the Resident's note and plan are summarized below: [I personally seen and examined this patient. However the above-noted agree with what has been written. Patient presents with bright red blood per rectum 3 since this morning. Patient states that this is the third urine the Row at this time of year that she's had this. Patient states that she's had a colonoscopy, endoscopy as well as a pill cam and no findings have been found. Patient states that she was told that she might have AVMs. Patient denies any abdominal pain. There is no lightheadedness or chest pain. There is no shortness of breath. There is no nausea or vomiting. Trending her hematocrit since March it is decreasing. On rectal exam she does have blood on rectal exam. Patient will require observation on the general medicine service to make sure she does not continue to bleed. GI consultation has been called. (SALO CHOWDHURY,DMITRY Bartlett) sure she does not continue to bleed. GI consultation has been called. (SAOL CHOWDHURY,DMITRY Bartlett)
[2016-06-27 12:22] LABS: ABSOLUTE BASOPHIL COUNT 0 /CUMM (0.0-0.2); ABSOLUTE EOSINOPHIL COUNT 0.1 /CUMM (0.0-0.7); ABSOLUTE GRANULOCYTE CT 6.2 /CUMM (1.4-6.5); ABSOLUTE LYMPH COUNT 1.4 /CUMM (1.2-3.4); ABSOLUTE MONOCYTE COUNT 0.5 /CUMM (0.10-0.60); BASOPHIL % 0.4 % (0.0-2.0); EOSINOPHIL % 1.3 % (0-5); GRANULOCYTE % 75.4 % (42.2-75.2); HEMATOCRIT 31.3 % (37-47); MEAN CORPUSCULAR HGB 31.1 PG (27.0-31.0); MEAN CORPUSCULAR HGB CONC 33.8 G/DL (33.0-37.0); MEAN CORPUSCULAR VOLUME 92.1 FL (81.0-99.0); MEAN PLATELET VOLUME 8.3 FL (7.4-10.4); PLATELET COUNT 313 /CUMM (130-400); RBC DISTRIBUTION WIDTH 15.5 % (11.5-14.5); WHITE BLOOD CELL COUNT 8.2 /CUMM (4.8-10.8)
--- NOTE | 2016-06-27 12:28 | NUR ---
BLOOD BANK CALLED, NEED REDRAW OF PINK TOP
--- NOTE | 2016-06-27 12:41 | NUR ---
BLOOD DRAWN AND SENT TO THE LAB (SST,BLUE,PINK,ROONEY)
--- NOTE | 2016-06-27 13:20 | NUR ---
RECTAL EXAM DONE, GUAIC POSITIVE.
--- NOTE | 2016-06-27 14:07 | NUR ---
SHARI FROM CASE MANAGEMENT IN TO SEE PT. PT WILL BE OBSERVATION.
--- NOTE | 2016-06-27 14:09 | NUR ---
PT ASKING TO EAT, ADVISED TO REMAIN NPO.
--- NOTE | 2016-06-27 14:52 | NUR ---
OK TO EAT, PT EATING. AWAITING BED ASSIGNMENT. FAMILY AT BEDSIDE. Informed waiting has been performed.
--- NOTE | 2016-06-27 15:19 | NUR ---
HOUSE STAFF TO BEDSIDE FOR EVALUATION.
--- NOTE | 2016-06-27 15:45 | NUR ---
PT HAS A BED 230-1. PT AND FAMILY UPDATED, 2NA CALLED FOR REPORT, RN TO CALL BACK.
--- NOTE | 2016-06-27 15:52 | NUR ---
REPORT GIVEN TO LIANG KIRBY. [employer] CALLED FOR PT TRANSPORT.
--- NOTE | 2016-06-27 16:23 | History & Physical ---
HUMBERTO CHOWDHURY,MELA 06/27/16 1623: General Information and HPI MD Statement: I have seen and personally examined PABLO LOYOLA and documented this H&P. The patient is a 89 year old F who presented with a patient stated chief complaint of [3 episodes of BRBPR]. 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 Patient was in her usual health up until this morning when she started having 3 episodes of loose BM with bright red blood which concerned her and made her come to ER for further evaluation. Patient denied any dizziness, lightheadedness. She has baseline mild shortness of breath which she attributes to her COPD but denies any acute exacerbation. She also denies any chest pain, nausea, vomiting , abdominal pain or urinary symptoms. Allergies/Medications Allergies: Coded Allergies: shellfish derived (Severe, HTN 05/14/15) zolpidem (From AMBIEN) (Severe, SOB 05/14/15) Gadolinium-Containing Contrast Medi (CONTRAST DYE - HIVES ALL OVER 04/05/16) Iodinated Contrast Media - Oral and (CONTRAST DYE - HIVES ALL OVER 04/05/16) gabapentin (UNKNOWN PER PT 05/14/15) Home Med list Acetaminophen 500 MG TABLET 2 TAB PO BID ARTHRITIS (Reported) Albuterol Sulfate (Proair Hfa) 8.5 GM HFA.AER.AD 2 PUF INH PRN COPD (Reported ) Atorvastatin Calcium 40 MG TABLET 1 TAB PO 1700 HLD (Reported) Cevimeline HCl 30 MG CAPSULE 1 CAP PO BID DRY MOUTH (Reported) Cholecalciferol (Vitamin D3) (Vitamin D3) 1,000 UNIT CAPSULE 1 CAP PO DAILY SUPPLEMENT (Reported) Cyclosporine (Restasis) 1 EACH DROPERETTE 1 AMP OP DAILY BOTH EYES (Reported) Diphenhydramine HCl (Unisom) 50 MG CAPSULE 1 CAP PO QHS SLEEP HELP (Reported) Docusate Sodium (Colace) 100 MG CAPSULE 2 CAP PO 1400 GI (Reported) Ferrous Sulfate 325 MG (65 MG IRON) TABLET 1 TAB PO BID SUPPLEMENT (Reported) Hydrochlorothiazide 12.5 MG CAPSULE 1 CAP PO DAILY BP (Reported) Insulin Glargine,Hum.rec.anlog (Lantus Solostar) 100 UNIT/1 ML INSULN.PEN 32 UNIT SC BID DIABETES (Reported) Lactobacillus Acidophilus (Probiotic) 1 EACH CAPSULE 1 CAP PO QAM PROBIOTIC ( Reported) Lansoprazole 30 MG CAPSULE.DR 1 CAP PO DAILY GI (Reported) Magnesium Oxide (Magnesium) 400 MG CAPSULE 1 CAP PO BID GALL BLADDER ( Reported) Mecobal/Levomefolat Ca/B6 Phos (Foltanx Tablet) 2 MG-3 MG-35 MG TABLET 1 TAB PO BID NEUROPATHY (Reported) Olmesartan Medoxomil (Benicar) 20 MG TABLET 1 TAB PO DAILY HTN Sennosides (Senna) 8.6 MG TABLET 2 TAB PO DAILY CONSTIPATION (Reported) Sitagliptin Phosphate (Januvia) 50 MG TABLET 1 TAB PO QAM DIABETES (Reported) Compliance With Home Meds: FAIR Past History Travel History Traveled to [place] past 21 day No Medical History Neurological: peripheral neuropathy (DM) EENT: cataracts (B/L surgery), hearing loss (B/L), otitis media (B/L) Cardiovascular: hypertension, hyperlipidemia, nonsustained Vtach postop lung surgery 2004. 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 BROTHER (prostate cancer). , Age 75. MOTHER (heart attack at age of 72, HTN). , Age 72. BROTHER, , Age 75; Cause: Prostate CA. MOTHER, , Age 72. SON SISTER, , Age 94; Cause: Old age. SISTER, Age 94. Relation not specified for: colon cancer Psychosocial History Who Do You Live With? self (dtr lives upstairs) Services at Home: None Primary Language: Lao ETOH Use: denies use Illicit Drug Use: denies illicit drug use Living Will? unknown Power of Lithograph Press Operator/HCP? unknown Functional Ability ADLs Independent: dressing, eating, toileting, bathing. Ambulation: walker (rolling) IADLs Independent: shopping, housework, finances, food prep, telephone, medication admin. Unknown: transportation. Review of Systems Review of Systems Constitutional: Reports: see HPI, weakness. Denies: chills, fever. EENTM: Denies: visual changes. Cardiovascular: Denies: chest pain, edema, orthopena, palpitations, syncope. Respiratory: Denies: cough, hemoptysis, short of breath, sputum production, wheezing. GI: Reports: bloody stool. Denies: abdominal pain, nausea, vomiting. Genitourinary: Denies: discharge, dysuria, frequency. Musculoskeletal: Denies: back pain. Skin: Denies: jaundice. Neurological/Psychological: Denies: confusion, dementia. Exam & Diagnostic Data Last 24 Hrs of Vital Signs/I&O Vital Signs Date Time Temp Pulse Resp B/P B/P Pulse O2 O2 Flow FiO2 Mean Ox Delivery Rate 06/27 1640 98.4 69 22 124/48 91 Room Air 06/27 1600 Room Air 06/27 1555 98.0 76 18 150/74 99 Room Air 06/27 1453 98 Room Air 06/27 1339 98.2 74 18 143/66 98 Room Air 06/27 1148 84 171/76 06/27 1110 98.0 76 16 126/57 94 Room Air Intake & Output 06/27 1600 06/27 0800 06/27 0000 Intake Total Output Total Balance Patient 150 lb Weight Weight Reported by Patient Measurement Method Physical Exam General Appearance Alert, Oriented X3, Cooperative, No Acute Distress Skin No Rashes Skin Temp/Moisture Exam: Warm/Dry HEENT Atraumatic, PERRLA, EOMI, Mucous Membr. moist/pink Neck Supple, No JVD Lymphatic Cervical nl Cardiovascular Regular Rate, Normal S1, Normal S2, No Murmurs Lungs Clear to Auscultation, Normal Air Movement Abdomen Normal Bowel Sounds, Soft, No Tenderness Neurological Normal Speech, Strength at 5/5 X4 Ext, Normal Tone, Sensation Intact, Cranial Nerves 3-12 NL Extremities No Edema, Normal Pulses Vascular Normal Pulses, Pulses Symmetrical Last 24 Hrs of Labs/Jerrod: Laboratory Tests 06/27/16 1239: PT 12.0, INR 1.14 06/27/16 1210: Anion Gap 15, Estimated GFR > 60, BUN/Creatinine Ratio 40.0 H, Glucose 205 H, Calcium 9.7, Magnesium 1.4 L, Total Bilirubin 0.4, AST 25, ALT 21, Alkaline Phosphatase 49, Troponin I 0.02, Total Protein 6.8, Albumin 3.9, Globulin 2.9, Albumin/Globulin Ratio 1.3, CBC w Diff NO MAN DIFF REQ, RBC 3.40 L, MCV 92.1, MCH 31.1 H, RDW 15.5 H, MPV 8.3, Gran % 75.4 H, Lymphocytes % 16.5 L, Monocytes % 6.4, Eosinophils % 1.3, Basophils % 0.4, Absolute Granulocytes 6.2, Absolute Lymphocytes 1.4, Absolute Monocytes 0.5, Absolute Eosinophils 0.1, Absolute Basophils 0, PUBS MCHC 33.8 Diagnostic Data EKG Results nsr, @82, N axis, no ST-T changes, QTc 463 Assessment/Plan Assessment: This is 89 yr/o white obese female with PMH of hypertension, hyperlipidemia, COPD not on home O2, Sjogren's disease, lower GI bleed with unknown etiology with extensive outpatient workup noted negative for any angiodysplasia or gastric ulcer disease, type 2 diabetes with neuropathy, 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 Patient likely have lower GI bleed probable diverticular source or hemorrhoid but possible upper GI source cannot be ruled out due to elevated BUN. 1. Lower GI bleed - Likely diverticular or hemorrhoid as source of bleeding but upper GI source cannot be ruled out due to elevated BUN - GI input appreciated, due to patient's extensive outpatient workup with negative EGD and colonoscopy for angiodysplasia or gastric ulcer disease with negative PILL CAm and due to advanced age . Continue conservative management - Repeat CBCs in the remaining to evaluate for anemia - Transfuse as needed to keep hemoglobin above 7 - Continue iron supplement - IV Protonix, can start by mouth Prilosec in a.m. - Clear liquid diet and advance as tolerated - Avoid NSAIDs, aspirin and anticoagulants 2. Type 2 diabetes - Accu-Cheks 3 times a day before meals at bedtime - Continue Levemir 32 units twice a day - Continue Januvia 3. Sjogren's disease - Continue cyclosporine ophthalmic drops and Cevimeline for dry eye and dry mouth respectively 4. Hypertension Continue home dose losartan and hydrochlorothiazide 5. Hyperlipidemia Continue statin 6. Chronic hypomagnesemia - Repeat magnesium to keep more than 2 6. DVT prophylaxis Mechanical due to GI bleed 7. DNR/DNI As Ranked By This Provider Problem List: 1. Lower GI bleed 2. Iron deficiency anemia 3. Hypomagnesemia 4. Sjoegren syndrome 5. Hypertension 6. Diabetes Core Measures/Miscellaneous Acute Coronary Syndrome ACS Diagnosis: No Cerebrovascular Accident CVA/TIA Diagnosis: No Congestive Heart Failure CHF Diagnosis: No Venous Thromboembolism VTE Risk Factors: Age > 40 [facility] prophylaxis d/t: No contraindications No VTE Pharm Prophylaxis d/t: Active bleeding VTE Diagnosis: No VTE Type: NONE VTE Confirmed by (Test): NONE Severe Sepsis Severe Sepsis Present: No Septic Shock Septic Shock Present: No Miscellaneous Documentation Attending Case Discussed With: LOLA STEELE MD Primary Care Physician: ADAM BLANTON MD Patient sees these Specialists Dr. Pablo GI Dr. Nuñez urology Dr. Barnett cardiology MD Dr. Miguel Angel Mcgarry for COPD Level of Patient Care: General Medicine Consults Needed: Consulting Specialty: Gastroenterology Consulting Physician: Dr. Chau Reason for Consult: lower gi bleed Resident Review Statement Resident Statement: examined this patient, discussed with family, reviewed EMR data (avail), reviewed images, amended to note Other Findings: see HPI LOLA STEELE MD 06/27/16 2230: Attending MD Review Statement Attending Statement Attending Statement: examined this patient, discuss w/resident/PA/PROCTOLOGIST, agreed w/resident/PA/PROCTOLOGIST, discussed with family, reviewed EMR data (avail), discussed with nursing, discussed with case mgmt, amended to note Attending Assessment/Plan: The patient is an 89 yo female with h/o HTN, HL, Sjogren's, COPD, DM2, LLL Lung ca (s/o lobectomy), and h/o GI bleeding in the past (had w/u last year EGD/ Colonoscopy, pill cam, etc.) who presented in the ED today after 3 separate episodes of grossly bloody loose bowel movements. She states this was similar to prior presentation. Last admission she required 2 units PRBC transfusion. She denied any abdominal pain, nausea or vomiting/hematemesis. She takes no aspirin or NSAIDS. Physical Exam: VS: T 98.0, P 76, BP 126/57, PO 94%, R 18 HEENT: eyes- PERRLA, EOMI gabbie- dry mucosa Neck: no JVD/bruits Chest: diminished breath sounds, clear Cor: RRR, nl S1, S2 w/?1/6 sys murm Abd: BS+, soft, NT, - HSM Ext: tr edema, pulses 1+ Neuro: alert & oriented x 3, non-focal exam Labs/Tests: as above Impression/Plan: #Acute Gastrointestinal Bleeding- bright red so assume lower GI source (? diverticular), however BUN is elevated and cannot exclude UGI source. Plan: Will bring in under observation status as per case management. Follow serial H/H and bowel movements for blood. GI consult Dr. Pablo. Clear liquids at present. Oral PPI. #Acute Blood Loss Anemia- H/H was 11.6/39.2 last check and is now 10.6/31.3. As above, 3 bloody bowel movements prior to admit. Plan: Follow-up H/H later today and in morning. Transfuse if increased bleeding and significant decrease in H/H. #DM2- On insulin. Plan: Continue Levemir and use sliding scale insulin with glucoscans. #Essential HTN- BP stable. Plan: Continue Losartan/HCTZ and follow. #Hyperlipidemia- on statin. Plan: Will continue statin.
--- NOTE | 2016-06-27 16:23 | Cons- Gastroenterology ---
General Information and HPI Consulting Request Date of Consult: 06/27/16 Requested By: LOLA STEELE MD Reason for Consult: Anemia Source of Information: patient, old records Exam Limitations: no limitations History of Present Illness: 89-year-old female, presenting with lower GI bleeding. Patient had 3 episodes of loose BM with bright red blood. Patient denied any dizziness, lightheadedness. She has baseline mild shortness of breath which she attributes to her COPD but denies any acute exacerbation. She also denies any chest pain, nausea, vomiting , abdominal pain or urinary symptoms. Patient has a history of hypertension, hyperlipidemia, DM, diabetic neuropathy, COPD (without home oxygen), post-left lower lobe pneumonectomy in 10/2004 for squamous cell CA of the lung (lymph node negative without adjuvant therapy), Sjogren's syndrome, low Vit D, past history of mixed iron and B12 deficiency, past history of GERD (currently asx- ?off PPI, but home med list states Lansoprazole), past history of colon adenoma, positive FHx colorectal Ca (F- 64), positive FHx anal Ca (pt's son). The patient denies using any ASA or NSAIDS. Patient has previously been seen by Dr. Pablo and extensively workup for GI blood loss. July 2015: Combined follow-up upper endoscopy to the third portion of the duodenum with biopsies, plus follow-up colonoscopy to the terminal ileum. She was remotely treated for positive H. pylori antibody (11/1999) with triple therapy. She has a past history of benign rectal tubular adenoma removed by Dr. Pablo (07/15/2005). Previous extensive workup for mixed iron and B12 deficiency (07/05/2007): Normal fasting serum carotene 102, anti-intrinsic factor antibody- negative, antiparietal cell antibody- negative, normal folate, normal IgA 368, tTG antibody- negative for celiac sprue. Normal amylase and normal lipase (going against chronic pancreatitis as a cause for the B12 deficiency). The patient had a combined EGD with biopsies and colonoscopy to the terminal ileum (07/20/2007). Random small bowel biopsy of the duodenum- normal villi. Random biopsy of the distal esophagus- minimal reflux. Extensive left-sided diverticula. Normal mucosa to the terminal ileum without any recurrent polyps. No angiodysplasias seen. No active upper GI bleeding or lower GI bleeding was seen then. Allergies/Medications Allergies: Coded Allergies: shellfish derived (Severe, HTN 05/14/15) zolpidem (From AMBIEN) (Severe, SOB 05/14/15) Gadolinium-Containing Contrast Medi (CONTRAST DYE - HIVES ALL OVER 04/05/16) Iodinated Contrast Media - Oral and (CONTRAST DYE - HIVES ALL OVER 04/05/16) gabapentin (UNKNOWN PER PT 05/14/15) Home Med List: Acetaminophen 500 MG TABLET 2 TAB PO BID ARTHRITIS (Reported) Albuterol Sulfate (Proair Hfa) 8.5 GM HFA.AER.AD 2 PUF INH PRN COPD (Reported ) Atorvastatin Calcium 40 MG TABLET 1 TAB PO 1700 HLD (Reported) Cevimeline HCl 30 MG CAPSULE 1 CAP PO BID DRY MOUTH (Reported) Cholecalciferol (Vitamin D3) (Vitamin D3) 1,000 UNIT CAPSULE 1 CAP PO DAILY SUPPLEMENT (Reported) Cyclosporine (Restasis) 1 EACH DROPERETTE 1 AMP OP DAILY BOTH EYES (Reported) Diphenhydramine HCl (Unisom) 50 MG CAPSULE 1 CAP PO QHS SLEEP HELP (Reported) Docusate Sodium (Colace) 100 MG CAPSULE 2 CAP PO 1400 GI (Reported) Ferrous Sulfate 325 MG (65 MG IRON) TABLET 1 TAB PO BID SUPPLEMENT (Reported) Hydrochlorothiazide 12.5 MG CAPSULE 1 CAP PO DAILY BP (Reported) Insulin Glargine,Hum.rec.anlog (Lantus Solostar) 100 UNIT/1 ML INSULN.PEN 32 UNIT SC BID DIABETES (Reported) Lactobacillus Acidophilus (Probiotic) 1 EACH CAPSULE 1 CAP PO QAM PROBIOTIC ( Reported) Lansoprazole 30 MG CAPSULE.DR 1 CAP PO DAILY GI (Reported) Magnesium Oxide (Magnesium) 400 MG CAPSULE 1 CAP PO BID GALL BLADDER ( Reported) Mecobal/Levomefolat Ca/B6 Phos (Foltanx Tablet) 2 MG-3 MG-35 MG TABLET 1 TAB PO BID NEUROPATHY (Reported) Olmesartan Medoxomil (Benicar) 20 MG TABLET 1 TAB PO DAILY HTN Sennosides (Senna) 8.6 MG TABLET 2 TAB PO DAILY CONSTIPATION (Reported) Sitagliptin Phosphate (Januvia) 50 MG TABLET 1 TAB PO QAM DIABETES (Reported) Past History Travel History Traveled to [place] past 21 day No Medical History Neurological: peripheral neuropathy (DM) EENT: cataracts (B/L surgery), hearing loss (B/L), otitis media (B/L) Cardiovascular: hypertension, hyperlipidemia, nonsustained Vtach postop lung surgery 2004. 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 BROTHER (prostate cancer). , Age 75. MOTHER (heart attack at age of 72, HTN). , Age 72. BROTHER, , Age 75; Cause: Prostate CA. MOTHER, , Age 72. SON SISTER, , Age 94; Cause: Old age. SISTER, Age 94. Relation not specified for: colon cancer Psychosocial History Who Do You Live With? self (dtr lives upstairs) Services at Home: None Primary Language: Romanian ETOH Use: denies use Illicit Drug Use: denies illicit drug use Living Will? unknown Power of Vaccine Customer Representative/HCP? unknown Functional Ability ADLs Independent: dressing, eating, toileting, bathing. Ambulation: walker (rolling) IADLs Independent: shopping, housework, finances, food prep, telephone, medication admin. Unknown: transportation. Review of Systems Review of Systems: Constitutional: Reports: see HPI, weakness. Denies: chills, fever. EENTM: Denies: visual changes. Cardiovascular: Denies: chest pain, edema, orthopena, palpitations, syncope. Respiratory: Denies: cough, hemoptysis, short of breath, sputum production, wheezing. GI: Reports: bloody stool. Denies: abdominal pain, nausea, vomiting. Genitourinary: Denies: discharge, dysuria, frequency. Musculoskeletal: Denies: back pain. Skin: Denies: jaundice. Neurological/Psychological: Denies: confusion, dementia. Exam & Diagnostic Data Vital Signs and I&O Physical Exam General Appearance Alert, Oriented X3, Cooperative, No Acute Distress Skin No Rashes Skin Temp/Moisture Exam: Warm/Dry HEENT Atraumatic, PERRLA, EOMI, Mucous Membr. moist/pink Neck Supple, No JVD Lymphatic Cervical nl Cardiovascular Regular Rate, Normal S1, Normal S2, No Murmurs Lungs Clear to Auscultation, Normal Air Movement Abdomen Normal Bowel Sounds, Soft, No Tenderness Neurological Normal Speech, Strength at 5/5 X4 Ext, Normal Tone, Sensation Intact, Cranial Nerves 3-12 NL Extremities No Edema, Normal Pulses Vascular Normal Pulses, Pulses Symmetrical Vital Signs Date Time Temp Pulse Resp B/P B/P Pulse O2 O2 Flow FiO2 Mean Ox Delivery Rate 06/27 1640 98.4 69 22 124/48 91 Room Air 06/27 1600 Room Air 06/27 1555 98.0 76 18 150/74 99 Room Air 06/27 1453 98 Room Air 06/27 1339 98.2 74 18 143/66 98 Room Air 06/27 1148 84 171/76 06/27 1110 98.0 76 16 126/57 94 Room Air Intake & Output 06/27 1600 06/27 0400 06/26 1600 06/26 0400 06/25 1600 06/25 0400 Intake Total Output Total Balance Patient 150 lb Weight Weight Reported by Patient Measurement Method Assessment/Plan Assessment/Recommendations: 89 yr/ old female with PMH of hypertension, hyperlipidemia, COPD not on home O2, Sjogren's disease, lower GI bleed with unknown etiology with extensive outpatient workup noted negative for any angiodysplasia or gastric ulcer disease , type 2 diabetes with neuropathy, 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 In view of the extensive medcial and endscopic evaluation anbd her age of 89 years would suggest conservative management with avoidance of NSAIDs, and anti- coagulants. PPI, iron and transfusions when necessary. Consult Acknowledgment - Thank you for your consult request.
[2016-06-27 16:40] VITALS: BP 124/48
--- NOTE | 2016-06-27 19:51 | NUR ---
PT ARRIVED TO FLOOR VIA WHEELCHAIR, AO, OOB W/ ASSIST, RA, IV IN PLACE, FLUIDS RUNNING, NO C/O PAIN, FALL PRECAUTIONS IN PLACE, ORIENTED TO ROOM AND CALL LIGHT, ASSESSMENT COMPLETE, DINNER ORDER PLACED, FAMILY @ BEDSIDE, WILL CONTINUE TO MONITOR.
[2016-06-27 22:00] LABS: ABSOLUTE BASOPHIL COUNT 0 /CUMM (0.0-0.2); ABSOLUTE EOSINOPHIL COUNT 0.2 /CUMM (0.0-0.7); ABSOLUTE GRANULOCYTE CT 5.2 /CUMM (1.4-6.5); ABSOLUTE LYMPH COUNT 2.5 /CUMM (1.2-3.4); ABSOLUTE MONOCYTE COUNT 0.6 /CUMM (0.10-0.60); BASOPHIL % 0.4 % (0.0-2.0); GRANULOCYTE % 60.7 % (42.2-75.2); HEMATOCRIT 29.3 % (37-47); MEAN CORPUSCULAR HGB 30.9 PG (27.0-31.0); MEAN CORPUSCULAR HGB CONC 33.7 G/DL (33.0-37.0); MEAN CORPUSCULAR VOLUME 91.9 FL (81.0-99.0); PLATELET COUNT 302 /CUMM (130-400); RBC DISTRIBUTION WIDTH 15.6 % (11.5-14.5); RED BLOOD CELL CT 3.19 /CUMM (4.20-5.40); WHITE BLOOD CELL COUNT 8.5 /CUMM (4.8-10.8)
[2016-06-27 22:17] VITALS: BP 124/64
--- NOTE | 2016-06-27 22:51 | Admission Certification ---
Admission Certification Certification Statement - As attending physician, I certify that at the time of - admission, based on clinical presentation, severity of - symptoms, need for further diagnostic testing and - therapeutic interventions, and risk of adverse outcomes - without in-hospital treatment, in my clinical assessment, - this patient requires an acute hospital stay for a minimum - of two nights or longer. I have also considered psychsocial - factors such as support system, advanced age, financial - issues, cognitive issues, and failed out-patient treatments, - past re-admission history, safety of patient, and lack of - compliance as applicable. Specific rationale supporting this admission is: Patient being brought in under observation to assess acute lower gastrointestinal bleeding. Needs serial H/H, observe for bleeding and GI consult.
[2016-06-28 06:48] VITALS: BP 142/60
--- NOTE | 2016-06-28 06:49 | PN- Gastroenterology ---
Assessment/Plan Assessment/Recommendations: (*Please refer to covering GI consult of 06/27/16, per Dr. Chau. Extensive records reviewed. Patient last seen in office 02/20/2016). The patient presented to the [facility] 06/27/2016 at 11:02 AM, complaining of 3 episodes of painless BRBPR, after having a dark bowel movement (chronic dark BM, on iron). There was no spontaneous lower GI bleeding. There was no hematemesis , nausea, vomiting, significant abdominal pain, diarrhea, obstipation, or tenesmus. She has mild chronic constipation attributed to the iron, with a bowel movement daily, on Senokot. There was no associated chest pain, increased shortness of breath, palpitations, or LOC. She denied any jaundice, fevers, chills, symptoms of UTI, or URI. Upon arrival, BP 126/57, P 76, R 16, T 98, O2 sat RA 94%. She was hemodynamically stable and actually the opposite of orthostatic, as her BP went up with standing, from a lying position. Her baseline Hgb usually is in the 11+ range, with baseline BUN 20+ range. She has been transfused in the past for angiodysplasias of the jejunum & has had an en extensive workup for this. She was seen in covering GI consultation by Dr. Chau on 06/27/16. She was kept for 23 hour observation, with conservative management advised. She has been transfused in the past, last on 07/31/15, for 07/29/15: carlos H/H 6.6/20.9. *She is on chronic Fe replacement 325 mg po BID & has been B12 deficient in the past, as well. *She was not on any outpatient aspirin, NSAIDs, antiplatelet agents, or A/C therapy. She was on outpatient Lansoprazole 30 mg daily for chronic GERD & also was on outpatient magnesium, which has been low in the past, probably secondary to PPI vs. HCTZ. *There was no hemoptysis, vaginal spotting, or gross hematuria. The patient denied any bleeding disorders. She denied any abdominal trauma to suggest retroperitoneal bleeding. 06/27/16: Admission labs 12:10 p.m.- WBC 8.2, H/H 10.6/31.3, MCV 92.1, RDW 15,5, PLT 313, PT 12.0, INR 1.14, glu 205, BUN/Cr 32/0.8, GFR > 60, Na 140, K 4.8, HCO3 20, AG 15, *Mg 1.4 (repleted), Ca 9.7, normal LFTs, including albumin 3.9, globulin 2.9, troponin .02 06/27/16: 8:39 PM- WBC 8.5, H/H 9.9/29.3, PLT 302 *As of 06/28/16, the patient has had absolutely no recurrent rectal bleeding since being admitted for 23-hour observation. She remains hemodynamically stable. She is tolerating clears and is hungry. 89-year-old female, followed by Dr. Macias for primary care, Dr. Robert Barnett for cardiology, Dr. Carrero for pulmonary, Dr. Kwong for thoracic surgery, Dr. Joseph for ENT, Dr. Nuñez for urology, & Dr. Iyer for rheumatology. She has numerous medical issues, including hypertension, hyperlipidemia, diabetes with neuropathy, & COPD (not on home O2), ex-60 pack year cigarette smoker, stopping in 1985. She had a remote cholecystectomy, AP, TAHBSO (benign) & skin Ca removal (?type). 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 Additionally, she has Sjogren's syndrome, low Vitamin D, past history of mixed iron and B12 deficiency , past history of GERD, history of colon adenomas, family history of colorectal cancer (father- 62), and family history of anal cancer (patient's son). The patient has known iron deficiency anemia, small bowel angiodysplasia, history of painless rectal bleeding after defecation attributed to hemorrhoids, past history of vague superficial abdominal pain, diverticular disease, past history of colon polyps, and the above family history of colorectal cancer and family history of anal cancer. Remote GI workup: 11/1999: positive H. pylori Ab, treated with triple therapy. 07/15/2005: Colonoscopy- removal of benign rectal tubular adenoma. 07/05/2007: GI workup for mixed iron and B12 deficiency- normal fasting serum carotene 102, anti-intrinsic factor Ab- negative, anti-parietal cell Ab- negative, normal folate, normal IgA 368, tTG Ab- negative, normal amylase/ lipase. 07/20/2007: EGD and colonoscopy to the terminal ileum- tertiary contractions, lower esophageal ring that "opened up" (not dilated), small bowel biopsy- normal villi, random esophageal biopsy- minimal GERD; extensive left side diverticula, normal mucosa to the terminal ileum without recurrent polyps, no angiodysplasias. 08/09/2007: SBFT- negative. *The patient previously refused a PillCam at that time for full workup of the iron deficiency anemia. I previously saw the patient 07/17/2014 as an inpatient at [facility] for iron deficiency anemia in the setting of OB negative stool, at which point, she was on aspirin and Mobic, both of which were stopped then. She was not complaint with outpatient GI followup then. I then saw the patient as an inpatient at [facility] 05/14/2015 for scant painless rectal bleeding after defecation of brown stool. She was given my office number, but did not call for followup. She was then readmitted to [facility] 07/29/2015 for symptomatic iron deficiency anemia with Hgb 6.6 and OB-negative stool, requiring 2 units PRBC. Her baseline Hgb since 2013 is in the 10 to 11+ range. 08/05/2015: Followup EGD to the third portion of the duodenum, plus followup colonoscopy to the terminal ileum after MoviPrep- patent incidental asymptomatic lower esophageal ring left intact, Z-line at 35 cm, 1 cm hiatal hernia pouch from 35-36 cm, random biopsies second and third portion of duodenum- normal villi; extensive left sided diverticula, mild internal hemorrhoids, hypertrophied anal papilla, fair prep. In view of the patient's advanced age, current guidelines do not recommend continual surveillance colonoscopies, regarding her past history of polyps. The patient was put on iron 325 mg twice a day. She cut this back to once a day, as her last CBC was relatively stable for her. She is not taking any aspirin or NSAIDs. She remained on Lansoprazole 30 mg daily for a past history of GERD, and is stable on this. 09/17/2015: *PillCam- negative except for 1 small non-bleeding jejunal angiodysplasia with a few nonspecific non-bleeding small bowel red spots, probably normal variants & of no clinical significance. 07/29/2015: normal TSH 1.31. 12/29/2015: HgbA1c 6.5. 01/28/2016: Renal ultrasound per urology- negative except for left renal cyst. The patient previously went to the [facility] 02/07/2016, initially for painless rectal bleeding after defecation of dark stool (on iron), however she then mentioned some vague superficial waistband/periumbilical discomfort. 02/07/2016: CT scan of the abdomen and pelvis without IV contrast per [facility]- diverticulosis without diverticulitis, negative for retroperitoneal bleed, left renal cyst, ASHD, osteopenia, DJD. Labs per [facility] 02/07/2016: WBC 9.2, H/H 10.4/31.4, normal MCV, normal RDW, PLT 345, PT 11.9, INR 1.13, glucose 208, BUN/ Cr 20/0.8, GFR > 60, normal electrolytes, albumin 4.4, globulin 3.3, with other LFTs normal, troponin 0.03. The patient was last seen in the office 02/20/2016 for followup of her angiodysplasia. Additionally, she had vague superficial waistband/periumbilical pain, which is somewhat constant in nature anteriorly. She denied any zoster or back pain. Her p.o. intake was fair. There was no weight loss. She was having normal bowel movements once a day, on iron & Senokot. There was no diarrhea, constipation, obstipation, or tenesmus. She had rare hemorrhoidal bleeding, but no spontaneous bleeding. She denied any nausea, vomiting, reflux on Lansoprazole , odynophagia, or dysphagia then. There was some vague mild early satiety. Again , her pylorus was patent on the recent EGD of 08/05/2015, which did not reveal any bezoars. The superficial abdominal symptoms were not necessarily positional in nature, and were not related to eating. There was no fatty food intolerance, keeping in mind the remote cholecystectomy. She otherwise felt relatively well, despite her numerous comorbidities. *The patient has had an extensive workup within the past half year, including EGD, colonoscopy, PillCam, CT scan, etc. *Her current rectal bleeding is not felt to be hemodynamically significant. She does have a past history of hemorrhoids. Her BUN may be elevated a little in part from her diuretics. She currently has no significant abdominal pain. She previously had vague superficial abdominal symptoms, which may be a manifestation of her neuropathy. Gastropresis is a possibility, although the previously were no bezoars on EGD. ( Doubt radicular component). They did not appear to be painful diverticular disease, and clinically, she does not have diverticulitis. There is no zoster on exam. Certainly, the likelihood of malignancy causing this is extremely low, based on the relatively recent workup. She had no symptoms typical for intestinal angina. *In any event, she has had no recurrent bleeding and has a benign abdominal exam. I previously had a long discussion with the patient and her daughter, Fatoumata, in the office 02/20/2016. I did mention the option of a gastric emptying study to rule out gastroparesis, keeping in mind her diabetic neuropathy. They were made aware that if this is the case, Reglan therapy could be problematic in an elderly patient. In view of her advanced age, they were not interested in pursuing a gastric emptying study. Her TSH and HgbA1c were relatively stable with regard to potential gastroparesis. Her previous pain was not related to eating. Even if this were the case, I cannot do a CTA because of her allergy to IV iodine. Additionally, she refused an MRA, as she is claustrophobic. She will call me to consider a gastric emptying study if they worsen. *At present, her scant rectal bleeding which resolved, could be purely from hemorrhoids. *SUGGEST- *Feed patient as tolerated. *Stop IVF (dilutional effect). If repeat CBC relatively stable, and no recurrent active bleeding, consideration for discharge to home later today, 06/28/16. *With regard to the angiodysplasias I feel that if she remains on lifelong iron and avoids antiplatelet agents and anticoagulants, she should be okay, as long as her CBC is followed very 1-2 months. I will leave this for her PMD. I would increase her iron to 325 mg TID. She can continue the Senokot & Colace to help prevent iron-induced constipation. *If her hematocrit drops, consideration would be for referral to [facility] for a double balloon enteroscopy. Other modalities to treat GI bleeding from angiodysplasias could include Octreotide and/or Thalidomide. Hormonal therapy with estrogen has fallen out of favor for this, as it has not been found to be that useful. Otherwise, she can carefully continue her outpatient Lansoprazole 30 mg daily for now, for her GERD, which is completely stable on this, although her magnesium should be supplemented on PPI. *No need for IV PPI. Additionally, her HCTZ could be contributing to the low magnesium. Again, in view of her advanced age, there is no need for a followup surveillance colonoscopy. Based on her advanced age and recent extensive GI workup, I would recommend conservative therapy if possible. Otherwise, GI followup will be on an as-needed basis. *The above was discussed with the medical house staff on 06/28/16. Problem List: 1. Rectal bleeding 2. Iron deficiency anemia 3. Angiodysplasia of small intestine 4. Diverticulosis of colon 5. History of colon polyps 6. Family history of colon cancer 7. History of hemorrhoids Subjective Subjective: (*Please refer to covering GI consult of 06/27/16, per Dr. Chau. Extensive records reviewed. Patient last seen in office 02/20/2016). The patient presented to the [facility] 06/27/2016 at 11:02 AM, complaining of 3 episodes of painless BRBPR, after having a dark bowel movement (chronic dark BM, on iron). There was no spontaneous lower GI bleeding. There was no hematemesis , nausea, vomiting, significant abdominal pain, diarrhea, obstipation, or tenesmus. She has mild chronic constipation attributed to the iron, with a bowel movement daily, on Senokot. There was no associated chest pain, increased shortness of breath, palpitations, or LOC. She denied any jaundice, fevers, chills, symptoms of UTI, or URI. Upon arrival, BP 126/57, P 76, R 16, T 98, O2 sat RA 94%. She was hemodynamically stable and actually the opposite of orthostatic, as her BP went up with standing, from a lying position. Her baseline Hgb usually is in the 11+ range, with baseline BUN 20+ range. She has been transfused in the past for angiodysplasias of the jejunum & has had an en extensive workup for this. She was seen in covering GI consultation by Dr. Chau on 06/27/16. She was kept for 23 hour observation, with conservative management advised. She has been transfused in the past, last on 07/31/15, for 07/29/15: carlos H/H 6.6/20.9. *She is on chronic Fe replacement 325 mg po BID & has been B12 deficient in the past, as well. *She was not on any outpatient aspirin, NSAIDs, antiplatelet agents, or A/C therapy. She was on outpatient Lansoprazole 30 mg daily for chronic GERD & also was on outpatient magnesium, which has been low in the past, probably secondary to PPI vs. HCTZ. *There was no hemoptysis, vaginal spotting, or gross hematuria. The patient denied any bleeding disorders. She denied any abdominal trauma to suggest retroperitoneal bleeding. 06/27/16: Admission labs 12:10 p.m.- WBC 8.2, H/H 10.6/31.3, MCV 92.1, RDW 15,5, PLT 313, PT 12.0, INR 1.14, glu 205, BUN/Cr 32/0.8, GFR > 60, Na 140, K 4.8, HCO3 20, AG 15, *Mg 1.4 (repleted), Ca 9.7, normal LFTs, including albumin 3.9, globulin 2.9, troponin .02 06/27/16: 8:39 PM- WBC 8.5, H/H 9.9/29.3, PLT 302 *As of 06/28/16, the patient has had absolutely no recurrent rectal bleeding since being admitted for 23-hour observation. She remains hemodynamically stable. She is tolerating clears and is hungry. 89-year-old female, followed by Dr. Macias for primary care, Dr. Robert Barnett for cardiology, Dr. Carrero for pulmonary, Dr. Kwong for thoracic surgery, Dr. Joseph for ENT, Dr. Nuñez for urology, & Dr. Iyer for rheumatology. She has numerous medical issues, including hypertension, hyperlipidemia, diabetes with neuropathy, & COPD (not on home O2), ex-60 pack year cigarette smoker, stopping in 1985. She had a remote cholecystectomy, AP, TAHBSO (benign) & skin Ca removal (?type). 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 Additionally, she has Sjogren's syndrome, low Vitamin D, past history of mixed iron and B12 deficiency , past history of GERD, history of colon adenomas, family history of colorectal cancer (father- 62), and family history of anal cancer (patient's son). The patient has known iron deficiency anemia, small bowel angiodysplasia, history of painless rectal bleeding after defecation attributed to hemorrhoids, past history of vague superficial abdominal pain, diverticular disease, past history of colon polyps, and the above family history of colorectal cancer and family history of anal cancer. Remote GI workup: 11/1999: positive H. pylori Ab, treated with triple therapy. 07/15/2005: Colonoscopy- removal of benign rectal tubular adenoma. 07/05/2007: GI workup for mixed iron and B12 deficiency- normal fasting serum carotene 102, anti-intrinsic factor Ab- negative, anti-parietal cell Ab- negative, normal folate, normal IgA 368, tTG Ab- negative, normal amylase/ lipase. 07/20/2007: EGD and colonoscopy to the terminal ileum- tertiary contractions, lower esophageal ring that "opened up" (not dilated), small bowel biopsy- normal villi, random esophageal biopsy- minimal GERD; extensive left side diverticula, normal mucosa to the terminal ileum without recurrent polyps, no angiodysplasias. 08/09/2007: SBFT- negative. *The patient previously refused a PillCam at that time for full workup of the iron deficiency anemia. I previously saw the patient 07/17/2014 as an inpatient at [facility] for iron deficiency anemia in the setting of OB negative stool, at which point, she was on aspirin and Mobic, both of which were stopped then. She was not complaint with outpatient GI followup then. I then saw the patient as an inpatient at [facility] 05/14/2015 for scant painless rectal bleeding after defecation of brown stool. She was given my office number, but did not call for followup. She was then readmitted to [facility] 07/29/2015 for symptomatic iron deficiency anemia with Hgb 6.6 and OB-negative stool, requiring 2 units PRBC. Her baseline Hgb since 2013 is in the 10 to 11+ range. 08/05/2015: Followup EGD to the third portion of the duodenum, plus followup colonoscopy to the terminal ileum after MoviPrep- patent incidental asymptomatic lower esophageal ring left intact, Z-line at 35 cm, 1 cm hiatal hernia pouch from 35-36 cm, random biopsies second and third portion of duodenum- normal villi; extensive left sided diverticula, mild internal hemorrhoids, hypertrophied anal papilla, fair prep. In view of the patient's advanced age, current guidelines do not recommend continual surveillance colonoscopies, regarding her past history of polyps. The patient was put on iron 325 mg twice a day. She cut this back to once a day, as her last CBC was relatively stable for her. She is not taking any aspirin or NSAIDs. She remained on Lansoprazole 30 mg daily for a past history of GERD, and is stable on this. 09/17/2015: *PillCam- negative except for 1 small non-bleeding jejunal angiodysplasia with a few nonspecific non-bleeding small bowel red spots, probably normal variants & of no clinical significance. 07/29/2015: normal TSH 1.31. 12/29/2015: HgbA1c 6.5. 01/28/2016: Renal ultrasound per urology- negative except for left renal cyst. The patient previously went to the [facility] 02/07/2016, initially for painless rectal bleeding after defecation of dark stool (on iron), however she then mentioned some vague superficial waistband/periumbilical discomfort. 02/07/2016: CT scan of the abdomen and pelvis without IV contrast per [facility]- diverticulosis without diverticulitis, negative for retroperitoneal bleed, left renal cyst, ASHD, osteopenia, DJD. Labs per [facility] 02/07/2016: WBC 9.2, H/H 10.4/31.4, normal MCV, normal RDW, PLT 345, PT 11.9, INR 1.13, glucose 208, BUN/ Cr 20/0.8, GFR > 60, normal electrolytes, albumin 4.4, globulin 3.3, with other LFTs normal, troponin 0.03. The patient was last seen in the office 02/20/2016 for followup of her angiodysplasia. Additionally, she had vague superficial waistband/periumbilical pain, which is somewhat constant in nature anteriorly. She denied any zoster or back pain. Her p.o. intake was fair. There was no weight loss. She was having normal bowel movements once a day, on iron & Senokot. There was no diarrhea, constipation, obstipation, or tenesmus. She had rare hemorrhoidal bleeding, but no spontaneous bleeding. She denied any nausea, vomiting, reflux on Lansoprazole , odynophagia, or dysphagia then. There was some vague mild early satiety. Again , her pylorus was patent on the recent EGD of 08/05/2015, which did not reveal any bezoars. The superficial abdominal symptoms were not necessarily positional in nature, and were not related to eating. There was no fatty food intolerance, keeping in mind the remote cholecystectomy. She otherwise felt relatively well, despite her numerous comorbidities. The patient has had an extensive workup within the past half year, including EGD , colonoscopy, PillCam, CT scan, etc. Her vague superficial abdominal symptoms are noted. I am wondering if this is a manifestation of her neuropathy. Gastropresis is a possibility.The symptoms do not necessarily appear radicular in nature, but this is part of the differential. They do not appear to be painful diverticular disease, and clinically, she does not have diverticulitis. There is no zoster on exam to explain the above. Certainly, the likelihood of malignancy causing this is extremely low, based on the relatively recent workup. Her symptoms are not typical for intestinal angina. I had a long discussion with the patient and her daughter, Fatoumata, in the office 02/20/2016. I did mention the option of a gastric emptying study to rule out gastroparesis, keeping in mind her diabetic neuropathy. They were made aware that if this is the case, Reglan therapy could be problematic in an elderly patient. In view of her advanced age, they are not interested in pursuing a gastric emptying study. Her TSH and HgbA1c were relatively stable with regard to potential gastroparesis. I do not think the above is intestinal angina, as her pain is not related to eating. Even if this were the case, I cannot do a CTA because of her allergy to IV iodine. Additionally, she refuses an MRA, as she is claustrophobic. I do not palpate any hernias in the abdominal wall to account for the above, and her abdominal exam is completely benign. Her symptoms seem mild at present, and she is willing to live with this. She will call me to consider a gastric emptying study if they worsen. With regard to the angiodysplasias I feel that if she remains on lifelong iron and avoids antiplatelet agents and anticoagulants, she should be okay, as long as her CBC is followed very 1-2 months. I will leave this for her PMD. I told her to increase her iron to 325 mg BID (possibly TID), depending on her subsequent blood counts. She can continue the Senokot to help prevent iron-induced constipation. If her hematocrit drops, consideration would be for referral to [facility] for a double balloon enteroscopy. Other modalities to treat GI bleeding from angiodysplasias could include Octreotide and/or Thalidomide. Hormonal therapy with estrogen has fallen out of favor for this, as it has not been found to be that useful. Otherwise, she can continue her Lansoprazole 30 mg daily for now, for her GERD, which is completely stable on this. Again, in view of her advanced age, there is no need for a followup surveillance colonoscopy. Otherwise, GI followup will be on an as-needed basis. Review of Systems: Full 14 point review of systems otherwise noncontributory, and as above. Review of Systems Constitutional: Denies: chills, diaphoresis, fever, malaise, weakness, unexplained weight loss. EENTM: Reports: hearing changes. Denies: blurred vision, double vision, visual changes, eye pain, eye drainage, eye tearing, icterus, ear discharge, ear pain, ear redness, nasal congestion, epistaxis, nasal pain, throat pain, throat swelling, mouth pain, tooth pain. Cardiovascular: Denies: no symptoms (DONATO), chest pain, edema, orthopena, palpitations, peripheral edema, syncope. Respiratory: Reports: chronic mild short of breath (DONATO). Denies: cough, hemoptysis, orthopnea, sputum production, stridor, wheezing. GI: Reports: painless BRBPR post defecation on admission (resolved), without spontaneous LGIB. Chronic dark stool on Fe. Denies: abdominal pain, bloating, constipation, diarrhea, distention, bowel incontinence, nausea, changes in stool, vomiting, steatorrhea. Genitourinary: Denies: discharge, dysuria, frequency, hematuria, hesitation, nocturia, pain, urgency. Musculoskeletal: Reports: joint pain/DJD. Denies: back pain, gout, joint swelling, muscle pain, muscle stiffness, neck pain. Skin: Denies: cysts, change in skin color, change in hair/nails, dryness, erythema, jaundice, lesions, lymphangitis, lumps, moles, rash. Neurological/Psychological: Reports: numbness (DM neuropathy). Denies: anxiety, ataxia, cognitive dysfunction, confusion, depressed, dementia, emotional problems, headache, paresthesia, pre-existing deficit, petit mal seizures, tingling, tremors, tonic-clonic seizures, unable to move lower ext, unable to move upper ext, weakness, other. Hematologic/Endocrine: Hx mixed Fe/B12 deficiency Denies: bruising, bleeding, polyuria, polydipsia, other. Immunologic/Allergic: Denies: splenectomy, HIV/AIDS, lymphadenopathy, other. All Other Systems: Reviewed and Negative Objective Vital Signs and I&Os Vital Signs Date Time Temp Pulse Resp B/P B/P Pulse O2 O2 Flow FiO2 Mean Ox Delivery Rate 06/28 0648 98.0 71 20 142/60 92 Room Air 06/27 2217 98.3 73 22 124/64 97 Room Air 06/27 1640 98.4 69 22 124/48 91 Room Air 06/27 1600 Room Air 06/27 1555 98.0 76 18 150/74 99 Room Air 06/27 1453 98 Room Air 06/27 1339 98.2 74 18 143/66 98 Room Air 06/27 1148 84 171/76 06/27 1110 98.0 76 16 126/57 94 Room Air Intake & Output 06/28 1600 06/28 0400 06/27 1600 06/27 0400 06/26 1600 06/26 0400 Intake Total 1280 710 Output Total 800 300 Balance 480 410 Intake, IV 800 350 Intake, Oral 480 360 Number 0 Bowel Movements Output, Urine 800 300 Patient 150 lb 150 lb Weight Weight Reported by Patient Measurement Method Physical Exam: Well-developed, well-nourished, slightly obese, elderly female in no apparent distress. Sclera anicteric. Conjunctiva pink. Oropharynx clear. False teeth. No oral thrush. No aphthous ulcers. There is no adenopathy, thyromegaly, or JVD. No peripheral stigmata of inflammatory bowel disease or chronic liver disease on exam. No spiders on the anterior chest wall. No CVA tenderness. No point spine tenderness. No zoster. Lungs: clear to A&P, with decreased breath sounds on the lower left, postop. No wheezing, rales or rhonchi. Heart exam: regular rate rhythm, S1 and S2, with murmur c/w MR. Breast and pelvic exams: deferred for PMD. Abdominal exam: normal bowel sounds, soft belly, *nontender, without guarding or rebound. No mass. No palpable hernia. No organomegaly. No fluid shift. No pulsatile mass. No epigastric bruit. Digital rectal exam per ER on 06/27/16- small amount BRBPR, no mass, no definite external hemorrhoid or fissure (repeat rectal exam deferred- done by myself at 08/05/15: colonoscopy). Extremities: +DJD, without C, C, or E. No rash. No palpable cords. Distal pulses 1+ bilaterally. DTRs 1+ bilaterally. A & O x 3. History of peripheral neuropathy (a detailed exam for this was deferred). Current Medications: Current Medications Sig/Kishor Start time Last Medication Dose Route Stop Time Status Admin Acetaminophen 1,000 MG BID 06/270 AC 06/27 PO 2039 Acetaminophen 650 MG Q6P PRN 06/27 1715 CAN PO Atorvastatin Calcium 40 MG 1700 06/27 1700 AC 06/27 PO 2011 Cevimeline HCl 30 MG BID 06/27 2200 AC 06/27 PO 2040 Cholecalciferol 1,000 IU DAILY 06/28 1000 AC PO Cyclosporine 1 GTT DAILY 06/28 1000 AC OPH Diphenhydramine HCl 50 MG ONCE ONE 06/27 2114 DC 06/27 PO 06/28 2115 215 Docusate Sodium 200 MG 1400 06/28 1400 AC PO Ferrous Sulfate 325 MG BID 06/27 2200 AC 06/27 PO 2040 Hydrochlorothiazide 12.5 MG DAILY 06/28 1000 AC PO Insulin Detemir 32 UNITS BID 06/27 2200 AC 06/27 SC 2106 Losartan Potassium 50 MG DAILY 06/28 1000 AC PO Magnesium Oxide 400 MG BID 06/27 2200 AC 06/27 PO 2040 Magnesium Sulfate 1 GM ONCE ONE 06/27 1845 DC 06/27 Dextrose/Water 100 ML IV 06/27 2244 2011 Pantoprazole Sodium 40 MG DAILY 06/27 1654 AC 06/27 IV 2012 Patient Medication 1 UNIT ONE NR 06/27 1700 [facility] [facility] 06/27 1730 Patient Medication 1 UNIT ONE NR 06/27 1615 [place] [facility] [place] 06/27 1700 Patient Medication 1 UNIT ONE NR 06/27 1615 [facility] ED 06/27 1700 Patient Medication 1 UNIT ONE NR 06/27 1615 [facility] ED 06/27 1700 Senna 187 MG AT BEDTIME 06/27 2200 AC 06/27 PO 2040 Sitagliptin Phosphate 50 MG QAM 06/28 1000 AC PO Sodium Chloride 1,000 ML .Q10H 06/27 1445 AC 06/28 IV 0621 Results Pertinent Lab Results: Laboratory Tests 06/28 06/27 06/27 0713 2039 1239 Chemistry Sodium Pending Potassium Pending Chloride Pending Carbon Dioxide Pending Anion Gap Pending BUN Pending Creatinine Pending BUN/Creatinine Ratio Pending Magnesium Pending Coagulation PT (9.4 - 12.5 SEC) 12.0 INR (0.90 - 1.19) 1.14 Hematology CBC w Diff Pending NO MAN DIFF REQ WBC (4.8 - 10.8 /CUMM) Pending 8.5 RBC (4.20 - 5.40 /CUMM) Pending 3.19 L Hgb (12.0 - 16.0 G/DL) Pending 9.9 L Hct (37 - 47 %) Pending 29.3 L MCV (81.0 - 99.0 FL) Pending 91.9 MCH (27.0 - 31.0 PG) Pending 30.9 RDW (11.5 - 14.5 %) Pending 15.6 H Plt Count (130 - 400 /CUMM) Pending 302 MPV (7.4 - 10.4 FL) Pending 9.0 Gran % (42.2 - 75.2 %) 60.7 Lymphocytes % (20.5 - 51.1 %) 29.7 Monocytes % (1.7 - 9.3 %) 7.2 Eosinophils % (0 - 5 %) 2.0 Basophils % (0.0 - 2.0 %) 0.4 Absolute Granulocytes (1.4 - 6.5 /CUMM) 5.2 Absolute Lymphocytes (1.2 - 3.4 /CUMM) 2.5 Absolute Monocytes (0.10 - 0.60 /CUMM) 0.6 Absolute Eosinophils (0.0 - 0.7 /CUMM) 0.2 Absolute Basophils (0.0 - 0.2 /CUMM) 0 PUBS MCHC (33.0 - 37.0 G/DL) Pending 33.7 06/27 1210 Chemistry Sodium (137 - 145 mmol/L) 140 Potassium (3.5 - 5.1 mmol/L) 4.8 Chloride (98 - 107 mmol/L) 106 Carbon Dioxide (22 - 30 mmol/L) 20 L Anion Gap (5 - 16) 15 BUN (7 - 17 mg/dL) 32 H Creatinine (0.5 - 1.0 mg/dL) 0.8 Estimated GFR (>60 ml/min) > 60 BUN/Creatinine Ratio (7 - 25 %) 40.0 H Glucose (65 - 99 mg/dL) 205 H Calcium (8.4 - 10.2 mg/dL) 9.7 Magnesium (1.6 - 2.3 mg/dL) 1.4 L Total Bilirubin (0.2 - 1.3 mg/dL) 0.4 AST (14 - 36 U/L) 25 ALT (9 - 52 U/L) 21 Alkaline Phosphatase (<127 U/L) 49 Troponin I (< 0.11 ng/ml) 0.02 Total Protein (6.3 - 8.2 g/dL) 6.8 Albumin (3.5 - 5.0 g/dL) 3.9 Globulin (1.9 - 4.2 gm/dL) 2.9 Albumin/Globulin Ratio (1.1 - 2.2 %) 1.3 Hematology CBC w Diff NO MAN DIFF REQ WBC (4.8 - 10.8 /CUMM) 8.2 RBC (4.20 - 5.40 /CUMM) 3.40 L Hgb (12.0 - 16.0 G/DL) 10.6 L Hct (37 - 47 %) 31.3 L MCV (81.0 - 99.0 FL) 92.1 MCH (27.0 - 31.0 PG) 31.1 H RDW (11.5 - 14.5 %) 15.5 H Plt Count (130 - 400 /CUMM) 313 MPV (7.4 - 10.4 FL) 8.3 Gran % (42.2 - 75.2 %) 75.4 H Lymphocytes % (20.5 - 51.1 %) 16.5 L Monocytes % (1.7 - 9.3 %) 6.4 Eosinophils % (0 - 5 %) 1.3 Basophils % (0.0 - 2.0 %) 0.4 Absolute Granulocytes (1.4 - 6.5 /CUMM) 6.2 Absolute Lymphocytes (1.2 - 3.4 /CUMM) 1.4 Absolute Monocytes (0.10 - 0.60 /CUMM) 0.5 Absolute Eosinophils (0.0 - 0.7 /CUMM) 0.1 Absolute Basophils (0.0 - 0.2 /CUMM) 0 PUBS MCHC (33.0 - 37.0 G/DL) 33.8 Imaging/Other Studies: 05/22/16: PORTABLE CHEST XRAY- No acute cardiopulmonary disease, appears stable since 04/05/2016. 06/27/16: EKG- NSR @ 82, normal axis, normal intervals, flat T in III, biphasic T in V1
--- NOTE | 2016-06-28 07:34 | PN- Housestaff ---
JIMENEZ CHOWDHURY,JUAN 06/28/16 0733: Subjective Follow-up For: 3 episodes of bright red blood per rectum Complaints: no complaints Subjective: I examined the patient this morning and later followed up on her again. She was resting comfortably in her bed initially and later in the recliner, without any symptoms, not in distress, but is have been stable overnight. No overnight issues otherwise. Of note, nurse did mention that she had streaks of blood after she passed stool today. No gross bleeding/blood mixed stool/black-tarry stool. Review of Systems Constitutional: Reports: see HPI. Objective Last 24 Hrs of Vital Signs/I&O Vital Signs Date Time Temp Pulse Resp B/P B/P Pulse O2 O2 Flow FiO2 Mean Ox Delivery Rate 06/28 1524 98.3 80 20 130/60 93 06/28 0842 71 142/60 06/28 0800 Room Air 06/28 0648 98.0 71 20 142/60 92 Room Air 06/27 2217 98.3 73 22 124/64 97 Room Air Intake & Output 06/28 1600 06/28 0800 06/28 0000 Intake Total 1100 1280 710 Output Total 200 800 300 Balance 900 480 410 Intake, IV 800 350 Intake, Oral 1100 480 360 Number 3 0 Bowel Movements Output, Urine 200 800 300 Patient 68.039 kg Weight Physical Exam General Appearance: Alert, Oriented X3, Cooperative, No Acute Distress Other Physical Findings: Skin No Rashes Skin Temp/Moisture Exam: Warm/Dry HEENT Atraumatic, PERRLA, EOMI, Mucous Membr. moist/pink Neck Supple, No JVD Lymphatic Cervical nl Cardiovascular Regular Rate, Normal S1, Normal S2, No Murmurs Lungs Clear to Auscultation, Normal Air Movement Abdomen Normal Bowel Sounds, Soft, No Tenderness Neurological Normal Speech, grossly intact Extremities No Edema, Normal Pulses Vascular Normal Pulses, Pulses Symmetrical Current Medications: Current Medications Sig/Kishor Start time Last Medication Dose Route Stop Time Status Admin Acetaminophen 1,000 MG BID 06/27 2199 DCD 06/27 PO 2038 Acetaminophen 650 MG Q6P PRN 06/27 1715 CAN PO Atorvastatin Calcium 40 MG 1700 06/27 170 DCD 06/27 PO 2011 Cevimeline HCl 30 MG BID 06/27 2199 DCD 06/28 PO 0838 Cholecalciferol 1,000 IU DAILY 06/28 1000 DCD 05 PO 0840 Cyclosporine 1 GTT DAILY 06/28 1000 DCD 06/28 OPH 0840 Diphenhydramine HCl 50 MG ONCE ONE 06/27 2114 DC 06/27 PO 06/28 2115 215 Docusate Sodium 200 MG 1400 06/28 1400 DCD 05 PO 1323 Ferrous Sulfate 325 MG TID 06/28 1000 DCD 05 PO 0840 Ferrous Sulfate 325 MG BID 06/27 2200 DC 06/27 PO 2040 Hydrochlorothiazide 12.5 MG DAILY 06/28 1000 DCD 06/28 PO 0841 Insulin Detemir 32 UNITS BID 06/27 2200 DCD 06/28 SC 0837 Losartan Potassium 50 MG DAILY 06/28 1000 DCD 06/28 PO 0842 Magnesium Oxide 400 MG ONE ONE 06/28 0830 DC 06/28 PO 06/28 0831 0841 Magnesium Oxide 400 MG BID 06/27 2200 DCD 06/27 PO 2040 Magnesium Sulfate 1 GM ONCE ONE 06/27 1845 DC 06/27 Dextrose/Water 100 ML IV 06/27 2244 2011 Omeprazole 40 MG DAILY AC 06/28 0825 DCD 06/28 PO 0839 Pantoprazole Sodium 40 MG DAILY 06/27 1654 DC 06/27 IV 2012 Patient Medication 1 ED .STK-MED ONE 06/28 1354 [facility] ED 06/28 1355 Patient Medication 1 UNIT ONE NR 06/28 0830 [facility] ED 06/28 1430 Patient Medication 1 UNIT ONE NR 06/27 1700 [facility] ED 06/27 1730 Senna 187 MG AT BEDTIME 06/27 2200 DCD 06/27 PO 2040 Sitagliptin Phosphate 50 MG QAM 06/28 1000 DCD 06/28 PO 0842 Sodium Chloride 1,000 ML .Q10H 06/27 1445 DCD 06/28 IV 0621 Last 24 Hrs of Lab/Jerrod Results Last 24 Hrs of Labs/Mics: Laboratory Tests 06/28/16 1405: CBC w Diff NO MAN DIFF REQ, RBC 3.34 L, MCV 92.2, MCH 30.5, RDW 15.2 H, MPV 8.4, Gran % 72.6, Lymphocytes % 18.4 L, Monocytes % 6.2, Eosinophils % 2.6, Basophils % 0.2, Absolute Granulocytes 5.8, Absolute Lymphocytes 1.5, Absolute Monocytes 0.5, Absolute Eosinophils 0.2, Absolute Basophils 0, PUBS MCHC 33.1 06/28/16 0713: Anion Gap 11, Estimated GFR > 60, BUN/Creatinine Ratio 28.8 H, Magnesium 1.7, CBC w Diff NO MAN DIFF REQ, RBC 3.11 L, MCV 92.1, MCH 31.2 H, RDW 15.4 H, MPV 8.5, Gran % 59.2, Lymphocytes % 27.6, Monocytes % 8.5, Eosinophils % 4.3, Basophils % 0.4, Absolute Granulocytes 3.8, Absolute Lymphocytes 1.8, Absolute Monocytes 0.5, Absolute Eosinophils 0.3, Absolute Basophils 0, PUBS MCHC 33.9 06/27/162038: CBC w Diff NO MAN DIFF REQ, RBC 3.19 L, MCV 91.9, MCH 30.9, RDW 15.6 H, MPV 9.0, Gran % 60.7, Lymphocytes % 29.7, Monocytes % 7.2, Eosinophils % 2.0, Basophils % 0.4, Absolute Granulocytes 5.2, Absolute Lymphocytes 2.5, Absolute Monocytes 0.6, Absolute Eosinophils 0.2, Absolute Basophils 0, PUBS MCHC 33.7 Assessment/Plan Assessment: This is 89 yr/o white obese female with PMH of hypertension, hyperlipidemia, COPD not on home O2, Sjogren's disease, lower GI bleed with unknown etiology with extensive outpatient workup noted negative for any angiodysplasia or gastric ulcer disease, type 2 diabetes with neuropathy, 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 Patient likely have lower GI bleed probable diverticular source or hemorrhoid but possible upper GI source cannot be ruled out due to elevated BUN. 1. Lower GI bleed - Likely diverticular or hemorrhoid as source of bleeding but upper GI source cannot be ruled out due to elevated BUN - GI input appreciated, due to patient's extensive outpatient workup with negative EGD and colonoscopy for angiodysplasia or gastric ulcer disease with negative PILL CAm and due to advanced age . Continuing conservative management. - Repeat CBC this AM revealed steady Hb/hct at 9.7/28.6 and GI consult was made. - Patient is well aware to GI services and is on regular follow up. Per GI consultation, if her h/h is stable and is not bleeding anymore, can be safely discharged, with increased FeSO4 to TID from BID and no ASA or anticoagulants for any reason. Follow up in 2-3 months. - Repeat h/h this afternoon revealed 10.2/30.8 and patient was not having any [place] bleeding and was asymptomatic. So safely discharged home. -Family is there who also lives in the same house but at upper level is there to take her back and does not need any STR as she has been walking around without assistance. 2. Type 2 diabetes - Accu-Cheks 3 times a day before meals at bedtime - Continue Levemir 32 units twice a day - Continue Januvia 3. Sjogren's disease - Continue cyclosporine ophthalmic drops and Cevimeline for dry eye and dry mouth respectively 4. Hypertension Continue home dose losartan. In view of her low magnesium, hydrochlorothiazide was advised to hold for few days and a reassessment with PCP, but the patient is not motivated to do so due to uncertain past history of BP getting not under control. But she is agreeable to the advice of getting checked as soon as possible again by her PCP. 5. Hyperlipidemia Continue statin 6. Chronic hypomagnesemia - Repleat magnesium to keep more than 2 6. DVT prophylaxis Mechanical due to GI bleed 7. DNR/DNI Problem List: 1. Rectal bleeding Pain Ratin Pain Location: - Pain Goal: Pain 4 or less Pain Plan: prn Tomorrow's Labs & Rationales: - Consulting Request: Consulting Specialty: Gastroenterology Consulting Physician: Dr. Chau Reason for Consult: lower gi bleed SHANTA CHOWDHURY,DAVID 06/28/16 1259: Attending MD Review Statement Attending Statement Attending MD Statement: examined this patient, discuss w/resident/PA/FRONT DESK ASSOCIATE, agreed w/resident/PA/FRONT DESK ASSOCIATE, reviewed EMR data (avail), discussed with nursing, discussed with case mgmt, amended to note Attending Assessment/Plan: Patient seen and examined. Resting comfortably and not in any acute distress. GI consultation and follow-up this morning appreciated. This morning she reports having a bowel movement immediately after oral intake. Nursing staff reports small amount of bright red blood per rectum. I hemoglobin level slightly lower this morning though not significantly so. Prior hemoglobin level was drawn about 11 hours prior. Patient has had extensive workup in the past. Bili was felt to be secondary to hemorrhoids per the GI service. Currently denies any abdominal pain. We'll repeat hemoglobin level limited on today. If levels remain stable she may be discharged home. If she shows any significant drop of hemoglobin level will reconsult gastroenterology service., Nasal level has improved. In view of her low magnesium level and prerenal azotemia would recommend holding her hydrochlorothiazide and have the patient follow-up with her primary care provider as an outpatient before resuming this medication.
[2016-06-28 08:37] LABS: ABSOLUTE BASOPHIL COUNT 0 /CUMM (0.0-0.2); ABSOLUTE EOSINOPHIL COUNT 0.3 /CUMM (0.0-0.7); ABSOLUTE GRANULOCYTE CT 3.8 /CUMM (1.4-6.5); ABSOLUTE LYMPH COUNT 1.8 /CUMM (1.2-3.4); ABSOLUTE MONOCYTE COUNT 0.5 /CUMM (0.10-0.60); BASOPHIL % 0.4 % (0.0-2.0); EOSINOPHIL % 4.3 % (0-5); GRANULOCYTE % 59.2 % (42.2-75.2); HEMATOCRIT 28.6 % (37-47); MEAN CORPUSCULAR HGB 31.2 PG (27.0-31.0); MEAN CORPUSCULAR HGB CONC 33.9 G/DL (33.0-37.0); MEAN CORPUSCULAR VOLUME 92.1 FL (81.0-99.0); MEAN PLATELET VOLUME 8.5 FL (7.4-10.4); PLATELET COUNT 282 /CUMM (130-400); RBC DISTRIBUTION WIDTH 15.4 % (11.5-14.5); RED BLOOD CELL CT 3.11 /CUMM (4.20-5.40); WHITE BLOOD CELL COUNT 6.4 /CUMM (4.8-10.8)
[2016-06-28 14:26] LABS: ABSOLUTE BASOPHIL COUNT 0 /CUMM (0.0-0.2); ABSOLUTE EOSINOPHIL COUNT 0.2 /CUMM (0.0-0.7); ABSOLUTE GRANULOCYTE CT 5.8 /CUMM (1.4-6.5); ABSOLUTE LYMPH COUNT 1.5 /CUMM (1.2-3.4); ABSOLUTE MONOCYTE COUNT 0.5 /CUMM (0.10-0.60); BASOPHIL % 0.2 % (0.0-2.0); EOSINOPHIL % 2.6 % (0-5); GRANULOCYTE % 72.6 % (42.2-75.2); HEMATOCRIT 30.8 % (37-47); MEAN CORPUSCULAR HGB 30.5 PG (27.0-31.0); MEAN CORPUSCULAR HGB CONC 33.1 G/DL (33.0-37.0); MEAN CORPUSCULAR VOLUME 92.2 FL (81.0-99.0); MEAN PLATELET VOLUME 8.4 FL (7.4-10.4); PLATELET COUNT 300 /CUMM (130-400); RBC DISTRIBUTION WIDTH 15.2 % (11.5-14.5); RED BLOOD CELL CT 3.34 /CUMM (4.20-5.40)
[2016-06-28 15:24] VITALS: BP 130/60
[2016-06-28] MEDS ORDERED: FERROUS SULFAT325 M3 PO (15:38)
--- NOTE | 2016-06-28 15:46 | Patient Discharge Instructions ---
Discharge Instructions General Discharge Information You were seen/treated for: Anemia, acute blood loss related Special Instructions: Please follow up with your PCP within seven days of discharge. One of your blood pressure (BP) medication is on hold (Hydrochlorothiazide). Please get your BP checked and follow up with your PCP regarding restarting it. Avoid Aspirin and blood thinner medications. Your iron supplement has been increased. Please take it accordingly. You have been provided with dietary supplements information too. Please go through it. Please follow up with GI service (Dr Pablo) within one month of discharge. Please return to emergency if symptoms worsen. Diet Continue normal diet: Yes Recommended Diet: Heart Healthy Activity Full Activity/No Limits: No Activity Self Limited: Yes Acute Coronary Syndrome Inclusion Criteria At DC or during hospital stay patient has or had the following: ACS DIAGNOSIS No Discharge Core Measures Meds if any: Prescribed or Continued at Discharge Meds if any: NOT Prescribed or Continued at Discharge Congestive Heart Failure Inclusion Criteria At DC or during hospital stay patient has or had the following: CHF DIAGNOSIS No Discharge Core Measures Meds if any: Prescribed or Continued at Discharge Meds if any: NOT Prescribed or Continued at Discharge Cerebrovascular accident Inclusion Criteria At DC or during hospital stay patient has or had the following: CVA/TIA Diagnosis No Discharge Core Measures Meds if any: Prescribed or Continued at Discharge Meds if any: NOT Prescribed or Continued at Discharge Venous thromboembolism Inclusion Criteria VTE Diagnosis No VTE Type NONE VTE Confirmed by (Test) NONE Discharge Core Measures - Per Current guidelines, there needs to be overlap - treatment for the first 5 days of Warfarin therapy. - If discharged on Warfarin prior to 5 days of - overlap therapy, the patient will need to be - assessed for post discharge needs including - *Post discharge parental anticoagulation - *Warfarin and/or parental anticoagulation education - *Follow up date to check INR post discharge At least 5 days overlap therapy as Inpatient No Meds if any: Prescribed or Continued at Discharge Note: Overlap Therapy is Warfarin and Anticoagulant Meds if any: NOT Prescribed or Continued at Discharge
== END 2016-06-28 16:27 ==
LOC: ERH 11:02 → ERHI 14:30 → ENRESERV 15:26 → 2NA 16:26
PROVIDERS: Internal Medicine; Student in an Organized Health Care Education/Training Program; ADMIT Internal Medicine
DX: K62.5 Hemorrhage of anus and rectum (principal); I10 Essential (primary) hypertension; E78.5 Hyperlipidemia, unspecified; E11.40 Type 2 diabetes mellitus with diabetic neuropathy, unspecified; Z79.4 Long term (current) use of insulin; J44.9 Chronic obstructive pulmonary disease, unspecified; Z87.891 Personal history of nicotine dependence; M35.00 Sjogren syndrome, unspecified; D50.9 Iron deficiency anemia, unspecified; K55.20 Angiodysplasia of colon without hemorrhage; K57.90 Diverticulosis of intestine, part unspecified, without perforation or abscess without bleeding; Z85.118 Personal history of other malignant neoplasm of bronchus and lung; Z86.010 Personal history of colon polyps
CPT/HCPCS: 6030; 36415; 82436; 93005; 93010; 96374; G0378